=== PATIENT | male | born 1935 | race Caucasian/White ===

== ENCOUNTER 2016-05-11 11:20 | Inpatient (IN) ==
--- NOTE | 2016-05-11 11:32 | Emergency Department Note ---
Disposition Clinical Impression: Congestive heart failure Qualifiers: Congestive heart failure type: unspecified congestive heart failure type Congestive heart failure chronicity: acute Qualified Code(s): I50.9 - Heart failure, unspecified Dyspnea Qualifiers: Dyspnea type: unspecified Qualified Code(s): R06.00 - Dyspnea, unspecified Disposition: Admitted As Inpatient Condition: Fair Referrals: Samanta De Souza MD [Primary Care Provider] - Forms: ED Satisfaction Letter Time of Disposition: 12:31 SOB HPI - General Chief Complaint: ED Shortness of Breath/Dyspnea Stated Complaint: SOB, CHF Time Seen by Provider: 05/11/16 11:22 Source: patient, EMS Mode of arrival: EMS Limitations: no limitations Nursing Notes Reviewed: Yes Vital Signs Reviewed: Yes - History of Present Illness 81-year-old with a cardiomyopathy EF of 30-35% who comes in complaining of increasing shortness of breath. Patient states he is normally not on Lasix but he takes his weight every day and if it starts to go up he treats himself when necessary. States his weight was up 1-2 pounds. 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 Denies: chest pain, fever Treatment prior to arrival: oxygen - Related Data Home Medications Medication Instructions Recorded Confirmed Alprazolam [Xanax 0.5 MG Tablet] 06/11/15 Aspirin [Adult Low Dose Aspirin EC] 06/11/15 Calcium 600 + Vit D Softgel 06/11/15 Carvedilol [Coreg] 06/11/15 HumaLOG 06/11/15 Lantus 06/11/15 Lipitor 06/11/15 Lisinopril [Zestril] 06/11/15 Multivitamin [Multivitamins] 06/11/15 Norvasc 06/11/15 Warfarin [Coumadin] 06/11/15 06/11/15 Previous Rx's Medication Instructions Recorded Azithromycin [Azithromycin 6-Tab 250 mg PO DAILY #6 tab 06/11/15 Pack] GuaiFENesin ER [Mucinex] 1,200 mg PO BID #20 tbbp.12hr 06/11/15 Allergies Allergy/AdvReac Type Severity Reaction Status Date / Time iodine Allergy See Verified 06/11/15 10:14 Comments levofloxacin [From Levaquin] Allergy See Verified 06/11/15 10:14 Comments vancomycin Allergy See Verified 06/11/15 10:14 Comments Constitutional: Denies: fever, chills, weakness, weight change Eyes: Denies: eye pain, eye discharge, vision change ENT ED: Denies: ear pain, throat pain, dental pain, hearing loss, epistaxis, congestion, dysphagia Cardiovascular: Denies: chest pain, palpitations, dyspnea on exertion, edema, syncope Respiratory: Reports: cough, dyspnea. Denies: wheezes, hemoptysis, stridor Gastrointestinal: Denies: abdominal pain, nausea, vomiting, diarrhea, constipation, hematemesis, melena, hematochezia Genitourinary: Denies: urgency, dysuria, frequency, hematuria Musculoskeletal: Denies: back pain, neck pain, arthralgia, myalgia Integumentary: Denies: rash, abrasion, lesions Neurological: Denies: headache, weakness, numbness, paresthesias, confusion, abnormal gait, vertigo Psychiatric: Denies: anxiety, depression, suicidal thoughts, homicidal thoughts , auditory hallucinations, visual hallucinations Endocrine: Denies: fatigue Hematological/Lymphatic: Denies: easy bleeding, easy bruising Allergic/Immunologic: Denies: facial swelling, urticaria Past Medical History - Past Medical History Medical history: Reports: CHF, diabetes, hypertension, other - Social History Smoking Status: Never smoker Smokeless Tobacco Status: No Alcohol use: Reports: occasionally Physical Exam - General Limitations: no limitations General appearance: alert - Head Head exam: atraumatic, normocephalic, normal inspection - Eye Eye exam: Present: normal appearance, PERRL, EOMI - ENT ENT exam: normal exam, normal oropharynx, mucous membranes moist - Neck Neck exam: Present: normal inspection, full ROM, trachea midline - Chest Chest inspection: Present: normal inspection, symmetric chest wall rise - Respiratory Respiratory exam: Present: respiratory distress, wheezes, accessory muscle use - Cardiovascular Cardiovascular exam: Present: regular rate, normal rhythm, normal heart sounds - Abdominal Exam Abdominal exam: Present: soft, Non-Tender. Absent: tenderness, distention, guarding, rebound, rigidity - Extremities Exam Extremities exam: Present: normal inspection, full ROM. Absent: tenderness, pedal edema - Expanded Lower Extremity Exam Neurovascular/Tendon exam: Absent: motor deficit, sensory deficit, tendon deficit Gait: not tested/not observed - Back Exam Back exam: Present: normal inspection, full ROM. Absent: tenderness - Neurological Exam Neurological exam: Present: alert, oriented X3 - Psychiatric Psychiatric exam: Present: normal affect, normal mood - Skin Skin exam: Present: warm, dry, intact, normal color Course - Reevaluation(s) Reevaluation #1: 81-year-old has a history of cardiomyopathy is not normally on Lasix he watches his weight and when it increases he takes Lasix. Noted that he's had some decreased urine output and increasing weight. Workup is consistent with CHF. - Consultations Consultation #1: Discussed with Dr. Robert, admit Time: 14:25 Vital Signs Temperature 98 F 05/11/16 11:21 Pulse Rate 79 05/11/16 11:21 Respiratory Rate 18 05/11/16 11:21 Blood Pressure 177/98 05/11/16 11:21 O2 Sat by Pulse Oximetry 93 L 05/11/16 11:21 Temperature 98 F 05/11/16 11:21 Pulse Rate 70 05/11/16 14:13 Respiratory Rate 18 05/11/16 14:13 Blood Pressure 158/94 05/11/16 14:13 O2 Sat by Pulse Oximetry 94 L 05/11/16 14:13 Oxygen Delivery Oxygen Delivery Nasal Cannula Shortness of Breath/Dyspnea - Lab Data Lab results reviewed: Yes I reviewed the patient's lab results. Result diagrams: 05/11/16 11:56 05/11/16 11:56 Lab Results 05/11/16 05/11/16 05/11/16 Range/Units 11:56 11:56 11:56 WBC 16.1 H (4.3-11.1) K/mcL RBC 5.17 (4.19-5.50) M/mcL Hgb 15.5 (12.9-16.9) g/dL Hct 45.2 (37.5-50.1) % MCV 87.4 (83.0-100.0) fL MCH 30.0 (28.0-33.3) pg MCHC 34.3 (31.6-35.5) g/dL RDW 13.6 (11.5-14.5) % Plt Count 133 L (140-400) K/mcL MPV 10.3 (9.4-12.4) fL Immature Gran % 0.7 (0-4) % Seg Neutrophils % 89.4 % Lymphocytes % 3.9 % Monocytes % 5.8 % Eosinophils % 0.1 % Basophils % 0.1 % Neutrophils # 14.4 H (1.6-8.9) K/mcL Lymphocytes # 0.6 (0.6-4.6) K/mcL Monocytes # 0.9 (0.0-1.3) K/mcL Eosinophils # 0.0 (0.0-0.6) K/mcL Basophils # 0.0 (0.0-0.2) K/mcL PT 42.4 H D (9.4-12.1) Seconds INR 3.8 D APTT 32.8 (26.0-36.0) Seconds Sodium 137 (136-145) mEq/L Potassium 3.6 (3.5-4.5) mEq/L Chloride 93 L (98-109) mEq/L Carbon Dioxide 32 H (19-29) mEq/L BUN 47 H (8-26) mg/dL Creatinine 1.98 H (0.72-1.25) mg/dL Est GFR ( Amer) 40 L (> 60) Est GFR (Non-Af Amer) 33 L (> 60) BUN/Creatinine Ratio 24 (6-26) Glucose 300 H (70-99) mg/dL Calculated Osmolality 307 H (280-300) Calcium 10.7 (8.6-10.8) mg/dL Troponin I (0-0.03) ng/mL B-Natriuretic Peptide (0-100) pg/mL 05/11/16 05/11/16 Range/Units 11:56 11:56 WBC (4.3-11.1) K/mcL RBC (4.19-5.50) M/mcL Hgb (12.9-16.9) g/dL Hct (37.5-50.1) % MCV (83.0-100.0) fL MCH (28.0-33.3) pg MCHC (31.6-35.5) g/dL RDW (11.5-14.5) % Plt Count (140-400) K/mcL MPV (9.4-12.4) fL Immature Gran % (0-4) % Seg Neutrophils % % Lymphocytes % % Monocytes % % Eosinophils % % Basophils % % Neutrophils # (1.6-8.9) K/mcL Lymphocytes # (0.6-4.6) K/mcL Monocytes # (0.0-1.3) K/mcL Eosinophils # (0.0-0.6) K/mcL Basophils # (0.0-0.2) K/mcL PT (9.4-12.1) Seconds INR APTT (26.0-36.0) Seconds Sodium (136-145) mEq/L Potassium (3.5-4.5) mEq/L Chloride (98-109) mEq/L Carbon Dioxide (19-29) mEq/L BUN (8-26) mg/dL Creatinine (0.72-1.25) mg/dL Est GFR ( Amer) (> 60) Est GFR (Non-Af Amer) (> 60) BUN/Creatinine Ratio (6-26) Glucose (70-99) mg/dL Calculated Osmolality (280-300) Calcium (8.6-10.8) mg/dL Troponin I 0.03 (0-0.03) ng/mL B-Natriuretic Peptide 855 H (0-100) pg/mL - Radiology Data Radiology results reviewed: Yes I reviewed the patient's radiology results. Chest X-Ray 05/11/16 11:26 IMPRESSION: Mild right basilar atelectasis. D/ / Antoinette Perla MD / Antoinette Perla MD Interpreting Provider: Antoinette Perla MD - EKG Data EKG attestation: Yes I reviewed and interpreted this EKG. EKG results narrative: Paced rhythm
[2016-05-11] MEDS ORDERED: Ipratropium/Albuterol Neb 3 ML IH ONE (11:54)
[2016-05-11 12:04] LABS: Basophils % 0.1 %; Eosinophils % 0.1 %; Hematocrit 45.2 % (37.5-50.1); Hemoglobin 15.5 g/dL (12.9-16.9); Immature Granulocytes % 0.7 % (0-4); Lymphocytes # 0.6 K/mcL (0.6-4.6); Lymphocytes % 3.9 %; Mean Corpuscular HGB Conc 34.3 g/dL (31.6-35.5); Mean Corpuscular Volume 87.4 fL (83.0-100.0); Mean Platelet Volume 10.3 fL (9.4-12.4); Monocytes # 0.9 K/mcL (0.0-1.3); Monocytes % 5.8 %; Neutrophils # 14.4 K/mcL (1.6-8.9); Platelet Count 133 K/mcL (140-400); Red Blood Count 5.17 M/mcL (4.19-5.50); Red Cell Distribution Width 13.6 % (11.5-14.5); Segmented Neutrophils % 89.4 %
[2016-05-11 12:14] LABS: Activated Partial Thrombo Time 32.8 Seconds (26.0-36.0)
[2016-05-11 12:15] LABS: INR 3.8; Prothrombin Time 42.4 Seconds (9.4-12.1)
[2016-05-11 12:19] LABS: Calcium 10.7 mg/dL (8.6-10.8); Potassium 3.6 mEq/L (3.5-4.5)
[2016-05-11] MEDS ORDERED: Furosemide 40 MG/4 ML VIAL IVP ONE ×2 (12:30→21:00)
[2016-05-11] MEDS ORDERED: Naloxone 0.4 MG/ML INJ IVP PRN (17:13)
[2016-05-11] MEDS ORDERED: ALPRAZolam 0.5 MG TABLET PO PRN (17:18)
[2016-05-11] MEDS ORDERED: amLODIPine 5 MG TABLET PO SCH (17:30)
[2016-05-11] MEDS ORDERED: *HR* Warfarin 2.5 MG TABLET PO SCH (17:30)
[2016-05-11] MEDS: Albuterol 2.5 MG/3 ML NEBULIZER IH SCH ×2 (17:34→22:54)
[2016-05-11] MEDS ORDERED: Warfarin perPT PO PRN (18:00)
[2016-05-11] MEDS ORDERED: Dextrose Gel 15 GM PO PRN ×4 (18:03→22:23)
[2016-05-11] MEDS ORDERED: D5% in Water 1,000 ML IV PRN ×2 (18:03→22:23)
[2016-05-11] MEDS ORDERED: *HR* Dextrose 50 % in Water (Syg) 50 ML SYRINGE IVP PRN ×2 (18:03→22:23)
--- NOTE | 2016-05-11 18:25 | Internal Med History&Physical ---
Date of Encounter: 05/12/16 Time of Encounter: 16:30 Assessment and Plan (1) Respiratory failure with hypoxia Current visit: Yes Status: Acute 1 possibly multifactorial- patient experiencing sudden onset of shortness of breath with wheezes. History of ischemic cardiomyopathy EF of 3035%. On Lasix at home no weight gain no edema no JVD chest x-ray with no congestion BNP is 855, he does have some abdominal distention/aspiration. This could be related to heart failure however he does have leukocytosis with white count 16.1 he is afebrile his hypoxic with Spo2 93%. This could be viral or infectious process- we will obtain blood cultures respiratory panel flu swab 2 we will administer Lasix 40 mg IV. We will recheck creatinine in the a.m. and readjust Lasix as needed according to renal function 3 administer steroids IV taper-bronchodilators 4 oxygen to maintain SPO2 greater than 92% 5. Obtain a KUB for a possible ileus Qualifiers: Chronicity: acute Qualified Code(s): J96.01 - Acute respiratory failure with hypoxia (2) Leukocytosis Current visit: Yes Status: Acute 1 A she has elevated white count 16.1 afebrile uncertain source of infection. Suspect this might be respiratory viral versus bacterial-we will obtain blood cultures respiratory pain all influenza swabs Qualifiers: Leukocytosis type: unspecified Qualified Code(s): D72.829 - Elevated white blood cell count, unspecified (3) Hypertension Current visit: Yes Status: Acute 1 we will continue with home medications except we will hold lisinopril due to elevated creatinine Qualifiers: Hypertension type: essential hypertension Qualified Code(s): I10 - Essential (primary) hypertension (4) Diabetes Current visit: Yes Status: Acute 1 Accu-Cheks before meals at bedtime with basal and sliding scale insulin as needed maintain postprandial less than 180 Qualifiers: Diabetes mellitus type: type 2 Diabetes mellitus complication status: with kidney complications Diabetes mellitus complication detail: with chronic kidney disease Diabetes mellitus chcf insulin use: with joint terminal attack controller use Chronic kidney disease stage: stage 3 (moderate) Qualified Code(s): E11.22 - Type 2 diabetes mellitus with diabetic chronic kidney disease; N18.3 - Chronic kidney disease, stage 3 (moderate); Z79.4 - intermediate (current) use of insulin (5) CAD (coronary artery disease) Current visit: Yes Status: Acute 1 A she has history of CAD with stents will continue with aspirin and statin beta tyrone will hold Vaibhav for now due to elevated creatinine nitroglycerin as needed for chest pain Qualifiers: Coronary Disease-Associated Artery/Lesion type: [place] artery [place] vs. transplanted heart: [place] heart Associated angina: without angina Qualified Code(s): I25.10 - Atherosclerotic heart disease of [place] coronary artery without angina pectoris (6) History of ischemic cardiomyopathy Current visit: Yes Status: Acute 1 last cardiac echo was proximal and one year ago EF at that time was 3035%. We will obtain cardiac echo 2 we will continue with Lasix, beta tyrone 3 monitor intake and output and daily weights 4 cardiac diet (7) Paroxysmal atrial fibrillation Current visit: Yes Status: Acute 1 presently a paced rhythm will continue with beta tyrone as well as Coumadin. We will monitor INR and adjust Coumadin as needed. (8) Ccomx-fy-fzdnybv renal failure Current visit: Yes Status: Acute 1 patient has CKD stage III. Creatinine is 1.98 which is elevated s seems baseline 1.4 1.5. Suspect related to cardiomyopathy/heart failure. Will continue with Lasix administered 40 mg IV post will recheck creatinine in the a.m. if any increase stop Lasix 2 we will avoid nephrotoxins 3 renal diet 4 monitor intake and output and daily weight 5 consult nephrology as needed (9) DVT prophylaxis Current visit: Yes Status: Acute Patient is on Coumadin Internal Medicine - H&P: HPI Chief complaint: Shortness of breath. Admitted From: Emergency Dept Plans for Post Hospital Care: Home History of present illness: Mr. Wei is a 81 year old male with past history of coronary artery disease ischemic cardiomyopathy history of V. tach with ICD placement paroxysmal atrial fibrillation on Coumadin C VISHNU stage III hypertension type 2 diabetes. According to the patient had been in his usual state of health and actually went to his primary care doctor yesterday and was doing well, however by the evening he states he started to experience some shortness of breath and noticed some rattling in his breathing. He took an extra Lasix prior to going to bed. States he did not sleep very well overnight and this morning when he awoke continued to experience shortness of breath, rattling respirations with a nonproductive cough. He notes that he did not urinate as much as he normally does after taking Lasix. He denies any chest pain, palpitations swelling or weight gain fevers chills nausea vomiting or diarrhea. He presented to the ER for evaluation. According to ER notes upon presentation the patient's oxygen saturation was 93% on room air lab work revealed leukocytosis white count 16.1 acute kidney injury with creatinine 1.98. Elevated blood sugars 300. Chest x- ray showed mild right basilar atelectasis troponin was 0.03 BNP was 855. He was admitted for further workup and evaluation. Upon assessment patient appears to be in mild respiratory distress he does have a moist cough and moist rattling respirations. Lungs sounds with faint expiratory wheeze no edema noted he does have Distended abdomen that is firm nontender his last bowel movement was this morning He is alert appropriate follow simple commands. He is 94% on 2 L, he is hemodynamically stable this time. I reviewed this case with who agrees with plan Past Med Surg Social Fam HX - Past Medical History Medical history: CHF, diabetes, hypertension, other - Social History Smoking Status: Never smoker Smokeless Tobacco Status: No Alcohol use: occasionally Drug use: none - Family History Mother Living Status: Hx Family Cardiac Disorders: Yes (CHF) Internal Medicine - H&P: Meds Acetaminophen [Tylenol] 500 - 1,000 mg PO Q6H PRN 05/11/16 [History] Alprazolam [Xanax 0.5 MG Tablet] 0.5 mg PO TID PRN 05/11/16 [History] Amlodipine [Norvasc] 5 mg PO DAILY 05/11/16 [History] Aspirin [Lo-Dose Aspirin EC] 81 mg PO DAILY 05/11/16 [History] Atorvastatin Calcium [Lipitor] 60 mg PO QPM 05/11/16 [History] Calcium Carbonate/Vitamin D3 [Calcium 600 + Vit D Softgel] 1 cap PO BID [History] Carvedilol [Coreg] 25 mg PO BID 05/11/16 [History] Folic Acid/Multivit-Min/Lutein [Adult Multivitamin Gummies] 2 tab PO DAILY 05/11 [History] Furosemide [Lasix] 40 mg PO DAILY 05/11/16 [History] Insulin Glargine,Hum.rec.anlog [Lantus Solostar] 12 unit SQ BID 05/11/16 [ History] Insulin LISPRO [Humalog] 3 - 8 unit SQ TIDWM 05/11/16 [History] Lisinopril [Zestril] 20 mg PO BID 05/11/16 [History] Pantoprazole Sodium [Protonix] 40 mg PO DAILY 05/11/16 [History] Warfarin [Coumadin] 2.5 mg PO MOWEFRSA 05/11/16 [History] Warfarin [Coumadin] 5 mg PO SUTUTH 05/11/16 [History] Allergies iodine Allergy (Verified 06/11/15 10:14) See Comments levofloxacin [From Levaquin] Allergy (Verified 06/11/15 10:14) See Comments vancomycin Allergy (Verified 06/11/15 10:14) See Comments All Systems PM: A 10-system review of systems was performed and is negative for pertinent findings except as documented above in the HPI. - Constitutional Constitutional: weakness - Cardiovascular Cardiovascular ROS IM: no chest pain, no diaphoresis, no dyspnea, no lightheadedness, no palpitations, no syncope - Respiratory Respiratory: cough, dyspnea on exertion, wheezing - Gastrointestinal Gastrointestinal: bloating - Musculoskeletal Musculoskeletal ROS IM: no numbness, no tingling - Neurological Neurological ROS: no confusion, no convulsions, no focal weakness, no numbness, no tingling, no tremor(s) - Constitutional Vitals: Temp Pulse Resp BP Pulse Ox 97.7 F 70 18 155/86 94 L 05/11/16 15:50 05/11/16 15:50 05/11/16 17:34 05/11/16 15:50 05/11/16 17:34 General appearance: Present: A&O X 3, answers questions appropriately - Head Head exam: Present: atraumatic, normocephalic - Eye Eye exam: Present: PERRL, conjuntiva pink, sclera anicteric Pupils: Present: PERRL - Neck Neck exam general surgery: Present: supple, trachea midline. Absent: lymphadenopathy - Respiratory Respiratory exam: Present: wheezes. Absent: accessory muscle use, rales, rhonchi - Cardiovascular Cardiovascular exam: Present: RRR, +S1, +S2. Absent: diastolic murmur, gallop, rubs, systolic murmur - GI/Abdominal GI/Abdominal exam: Present: distended, firm, hypoactive bowel sounds, normal bowel sounds, no peritoneal signs. Absent: tenderness - Extremities Exam Extremities exam: Present: warm, radial pulses palpable and symetrical. Absent : calf tenderness, cyanotic, pedal edema - Neurological Exam Neurological exam: Present: CN II-XII intact, oriented X3, no focal deficits. Absent: pronater drift, facial droop, speech deficit - Skin Skin exam: Present: dry, intact Internal Med - H&P Results - Labs CBC & Chem 7: 05/11/16 11:56 05/11/16 11:56 - EKG Data EKG comments: 05/12/16 00:33 Paced rhythm - Impressions ITS Impressions KUB X-Ray 05/11/16 17:12 IMPRESSION: Nonspecific bowel gas pattern, similar to prior exam. D/ / Bakari Youngblood MD / Bakari Youngblood MD Interpreting Provider: Bakari Youngblood MD - Diagnostic Studies Chest x-ray Additional comments: Per radiology reading mild right basilar atelectasis
[2016-05-11] MEDS ORDERED: Insulin LISPRO 300 UNITS/3 ML VIAL SQ ONE (18:28)
[2016-05-11] MEDS ORDERED: Insulin LISPRO 300 UNITS/3 ML VIAL SQ SCH (21:00)
[2016-05-11] MEDS ORDERED: Insulin DETEMIR 100 UNIT/ML X5UNITS SQ SCH (21:00)
[2016-05-11] MEDS: VITAMIN D3 PO SCH (21:27)
[2016-05-11] MEDS: CALCIUM CARBONATE PO SCH (21:27)
[2016-05-11 21:30] LABS: ABG Base Excess 5.5 mEq/L (-2.0 to 3.0); ABG HCO3 37.2 mEQ/L (21-27); ABG Oxygen Saturation 95 % (95-98); ABG PH 7.22 pH Units (7.32-7.45); ABG PO2 91 mmHg (85-104)
[2016-05-11 21:32] LABS: ABG PCO2 91 mmHg (35-45); Blood Gas FiO2 36 %; Blood Gas Liter Flow 4 L/MIN
[2016-05-11] MEDS ORDERED: *HR* Etomidate 40 MG/20 ML VIAL IVP ONE (21:57)
[2016-05-11] MEDS ORDERED: *HR* Midazolam HCl 2 MG/2 ML VIAL IVP ONE (21:58)
[2016-05-11] MEDS ORDERED: 0.9 % Sodium Chloride 500 ML IVC ONE (22:34)
[2016-05-11 22:46] LABS: Adenovirus Not Detected (Not Detect); Coronavirus 229E Not Detected (Not Detect); Coronavirus HKU1 Not Detected (Not Detect); Coronavirus NL63 Not Detected (Not Detect); Coronavirus OC43 Not Detected (Not Detect); Human Metapneumovirus Not Detected (Not Detect); Human Rhinovirus/Enterovirus Not Detected (Not Detect)
[2016-05-11 22:47] LABS: Bordetella Pertussis Not Detected (Not Detect); Chlamydophila pneumoniae Not Detected (Not Detect); Influenza A Subtype 2009 H1 Not Detected (Not Detect); Influenza A Untypeable Not Detected (Not Detect); Influenza B Not Detected (Not Detect); Mycoplasma pneumoniae Not Detected (Not Detect); Parainfluenza Virus 1 Not Detected (Not Detect); Parainfluenza Virus 2 Not Detected (Not Detect); Parainfluenza Virus 3 Not Detected (Not Detect); Parainfluenza Virus 4 Not Detected (Not Detect); Respiratory Syncytial Virus Not Detected (Not Detect)
[2016-05-11 22:59] LABS: ABG Base Excess 7.7 mEq/L (-2.0 to 3.0); ABG HCO3 35.3 mEQ/L (21-27); ABG Oxygen Saturation 100 % (95-98); ABG PCO2 61 mmHg (35-45); ABG PH 7.37 pH Units (7.32-7.45); ABG PO2 453 mmHg (85-104); ABG TCO2 37.2 mEq/L (20-26); Blood Gas FiO2 100 %
[2016-05-11] MEDS: MethylPREDNISolone 40 MG/ML VIAL IVP SCH (23:48)
[2016-05-11] MEDS: Azithromycin 500 MG in D5% in Water 250 ML IVPB SCH (23:48)
[2016-05-11] MEDS: Piperacillin/Tazobactam 3.375 GM in D5% in Water (Mini-Bag+) 100 ML IVPB SCH (23:49)
[2016-05-12] MEDS: Pantoprazole 40 MG VIAL IVP SCH ×2 (00:40→07:37)
--- NOTE | 2016-05-12 01:03 | Event Note ---
Date of Encounter: 05/12/16 Time of Encounter: 21:30 Patient began to experience increased respiratory distress. He had audible coarse rhonchi to With use of abdominal accessory muscles. He appeared lethargic and arouses to verbal stimuli. SPO2 was 94% on 4 L nasal cannula. Notify Dr Ch who was at bedside . Patient was sections progressed with therapy moderate amount of brown foul-smelling secretions. ABG was obtained PA 7.22 PCO2 91 PO2 91 bicarbonate 37 sats 95% on 4 L nasal cannula. Patient is unable to cough and clear airway unsafe to place patient on BiPAP. Decision was made to intubate patient to protect airway improve oxygenation.. I did speak with patient's Matilde Wei by telephone update her on patient's condition explained the need for intubation which she gave consent to intubate patient. Patient was transported to ICU and was sedated and intubated.
--- NOTE | 2016-05-12 01:12 | Critical Care Progress Note ---
Critical Care Note - Narrative Summary: The high probability of a clinically significant, sudden or life threatening deterioration of the patient's condition required my full and direct attention, intervention and personal management. Patient began to experience increased respiratory distress. He had audible coarse rhonchi and increase use of abdominal accessory muscles. He appeared lethargic and arouses to verbal stimuli. SPO2 was 94% on 4 L nasal cannula. Notify Dr Ch who was at bedside . Patient was sections progressed with therapy moderate amount of brown foul-smelling secretions. ABG was obtained PA 7.22 PCO2 91 PO2 91 bicarbonate 37 sats 95% on 4 L nasal cannula. Patient is unable to cough and clear airway unsafe to place patient on BiPAP. Decision was made to intubate patient to protect airway improve oxygenation.. I did speak with patient's Matilde Wei by telephone update her on patient's condition explained the need for intubation which she gave consent to intubate patient. Patient was transported to ICU and was sedated and intubated. Patient tolerated the procedure he did have some hypotension postintubation we did give him a small fluid challenge. This critical care time spent with the patient was 40 minutes A/P Acute respiratory failure-suspect this is related to infectious process/ aspiration-cultures have been sent will send sputum culture will initiate empiric antibiotic coverage with Zosyn and Zithromax. We will obtain CT of chest obtain ABG 1 hour post intubation adjustment settings accordingly. propofol for sedation We will consult boot turner for further management Abdominal distention-place NG low wall suction Was code activated?: No - CC Time CC start date: 05/11/16 CC start time: 21:30 CC end date: 05/11/16 CC end time: 22:10 CC total mins: 40 Critical care time: 30 - 74 mins
[2016-05-12] MEDS: Insulin LISPRO 300 UNITS/3 ML VIAL SQ SCH ×4 (01:57→17:18)
[2016-05-12] MEDS: Albuterol 2.5 MG/3 ML NEBULIZER IH SCH ×4 (03:34→21:21)
[2016-05-12 04:43] LABS: ABG Base Excess 2.5 mEq/L (-2.0 to 3.0); ABG HCO3 28.4 mEQ/L (21-27); ABG Oxygen Saturation 96 % (95-98); ABG PCO2 48 mmHg (35-45); ABG PH 7.38 pH Units (7.32-7.45); ABG PO2 82 mmHg (85-104); ABG TCO2 29.9 mEq/L (20-26); Blood Gas FiO2 40 %
[2016-05-12 04:57] LABS: Hematocrit 40.9 % (37.5-50.1); Mean Corpuscular HGB Conc 32.8 g/dL (31.6-35.5); Mean Corpuscular Hemoglobin 29.9 pg (28.0-33.3); Mean Corpuscular Volume 91.3 fL (83.0-100.0); Mean Platelet Volume 10.7 fL (9.4-12.4); Platelet Count 105 K/mcL (140-400); Red Blood Count 4.48 M/mcL (4.19-5.50); Red Cell Distribution Width 14.3 % (11.5-14.5)
[2016-05-12 05:07] LABS: INR 7.3; Prothrombin Time 83.6 Seconds (9.4-12.1)
[2016-05-12 05:08] LABS: Hemoglobin 13.4 g/dL (12.9-16.9)
[2016-05-12 05:18] LABS: Calcium 9.7 mg/dL (8.6-10.8); Magnesium 1.9 mg/dL (1.6-2.6); Potassium 3.7 mEq/L (3.5-4.5)
[2016-05-12 05:29] LABS: Lymphocytes # 0.7 K/mcL (0.6-4.6); Monocytes # 0.4 K/mcL (0.0-1.3); Neutrophils # 9.8 K/mcL (1.6-8.9); Platelet Estimate Slight Decrease (Normal)
[2016-05-12 05:30] LABS: Reactive Lymphocytes Present (Not Present); Toxic Granulation Present (Not Present)
[2016-05-12] MEDS ORDERED: MethylPREDNISolone 40 MG/ML VIAL IVP SCH (06:00)
[2016-05-12 06:31] LABS: INR 7.9; Prothrombin Time 90.4 Seconds (9.4-12.1)
[2016-05-12] MEDS ORDERED: Insulin LISPRO 300 UNITS/3 ML VIAL SQ SCH (07:30)
[2016-05-12] MEDS: Piperacillin/Tazobactam 3.375 GM in D5% in Water (Mini-Bag+) 100 ML IVPB SCH ×2 (07:37→15:00)
[2016-05-12] MEDS: MethylPREDNISolone 40 MG/ML VIAL IVP SCH (07:40)
[2016-05-12] MEDS: Aspirin Enteric Coated 81 MG Tablet PO SCH (07:40)
[2016-05-12] MEDS: CALCIUM CARBONATE PO SCH ×2 (07:41→20:22)
[2016-05-12] MEDS: VITAMIN D3 PO SCH ×2 (07:41→20:22)
--- NOTE | 2016-05-12 07:51 | Pulmonology Consult Note ---
<JohnAbebe W - Last Filed: 05/12/16 10:12> Date of Encounter: 05/12/16 Medications and Allergies Acetaminophen [Tylenol] 500 - 1,000 mg PO Q6H PRN 05/11/16 [History] Alprazolam [Xanax 0.5 MG Tablet] 0.5 mg PO TID PRN 05/11/16 [History] Amlodipine [Norvasc] 5 mg PO DAILY 05/11/16 [History] Aspirin [Lo-Dose Aspirin EC] 81 mg PO DAILY 05/11/16 [History] Atorvastatin Calcium [Lipitor] 60 mg PO QPM 05/11/16 [History] Calcium Carbonate/Vitamin D3 [Calcium 600 + Vit D Softgel] 1 cap PO BID [History] Carvedilol [Coreg] 25 mg PO BID 05/11/16 [History] Folic Acid/Multivit-Min/Lutein [Adult Multivitamin Gummies] 2 tab PO DAILY 05/11 [History] Furosemide [Lasix] 40 mg PO DAILY 05/11/16 [History] Insulin Glargine,Hum.rec.anlog [Lantus Solostar] 12 unit SQ BID 05/11/16 [ History] Insulin LISPRO [Humalog] 3 - 8 unit SQ TIDWM 05/11/16 [History] Lisinopril [Zestril] 20 mg PO BID 05/11/16 [History] Pantoprazole Sodium [Protonix] 40 mg PO DAILY 05/11/16 [History] Warfarin [Coumadin] 2.5 mg PO [id number] 05/11/16 [History] Warfarin [Coumadin] 5 mg PO SUTUTH 05/11/16 [History] Allergies iodine Allergy (Verified 06/11/15 10:14) See Comments levofloxacin [From Levaquin] Allergy (Verified 06/11/15 10:14) See Comments vancomycin Allergy (Verified 06/11/15 10:14) See Comments All Systems: A 10-system review of systems was performed and is negative for pertinent findings except as documented above in the HPI. Physical Examination Vital Signs: Vital Signs, Last 4 Hours Temp Pulse Resp BP Pulse Ox 05/12/16 09:00 70 24 101/59 96 05/12/16 08:00 70 22 94/57 94 L 05/12/16 07:56 70 05/12/16 07:32 97.5 F L 05/12/16 07:00 70 23 113/62 93 L 05/12/16 06:15 16 114/69 96 05/12/16 06:00 70 22 114/69 98 Ventilator Settings Ventilator Settings: Ventilator Settings, Last 8 Hours Ventilator Mode A/C Ventilator Mode A/C Ventilator Mode A/C Ventilator Mode A/C Ventilator Mode A/C Ventilator Mode A/C Ventilator Mode A/C Ventilator Mode A/C Ventilator Mode A/C Ventilator Mode A/C Ventilator Mode A/C Ventilator Mode A/C Ventilator Tidal Volume 500 Setting Ventilator Tidal Volume 500 Setting Ventilator Tidal Volume 550 Setting Ventilator Tidal Volume 550 Setting Ventilator Tidal Volume 550 Setting Ventilator Tidal Volume 550 Setting Ventilator Tidal Volume 550 Setting Ventilator Tidal Volume 550 Setting Ventilator Tidal Volume 550 Setting Ventilator Tidal Volume 550 Setting Ventilator Tidal Volume 550 Setting Ventilator Tidal Volume 550 Setting Ventilator Respiratory Rate 16 Setting Ventilator Respiratory Rate 16 Setting Ventilator Respiratory Rate 16 Setting Ventilator Respiratory Rate 16 Setting Ventilator Respiratory Rate 16 Setting Ventilator Respiratory Rate 16 Setting Ventilator Respiratory Rate 16 Setting Ventilator Respiratory Rate 16 Setting Ventilator Respiratory Rate 16 Setting Ventilator Respiratory Rate 16 Setting Ventilator Respiratory Rate 16 Setting Ventilator Respiratory Rate 16 Setting Actual Respiratory Rate 24 Actual Respiratory Rate 22 Actual Respiratory Rate 23 Actual Respiratory Rate 16 Actual Respiratory Rate 23 Actual Respiratory Rate 22 Actual Respiratory Rate 22 Actual Respiratory Rate 16 Actual Respiratory Rate 16 Actual Respiratory Rate 18 Actual Respiratory Rate 18 Positive End Expiratory 5 Pressure Positive End Expiratory 5 Pressure Positive End Expiratory 5 Pressure Positive End Expiratory 5 Pressure Positive End Expiratory 5 Pressure Positive End Expiratory 5 Pressure Positive End Expiratory 5 Pressure Positive End Expiratory 5 Pressure Positive End Expiratory 5 Pressure Positive End Expiratory 5 Pressure Positive End Expiratory 5 Pressure Positive End Expiratory 5 Pressure Peak Inspiratory Airway 33 Pressure Peak Inspiratory Airway 33 Pressure Peak Inspiratory Airway 33 Pressure Peak Inspiratory Airway 33 Pressure Peak Inspiratory Airway 29 Pressure Peak Inspiratory Airway 29 Pressure Peak Inspiratory Airway 29 Pressure Peak Inspiratory Airway 28 Pressure Peak Inspiratory Airway 28 Pressure Peak Inspiratory Airway 29 Pressure Peak Inspiratory Airway 28 Pressure Results - Laboratory Findings CBC and BMP: 05/12/16 04:21 05/12/16 04:21 ABG ABG pH 7.38 pH Units (7.32-7.45) 05/12/16 04:35 ABG pCO2 48 mmHg (35-45) H 05/12/16 04:35 ABG pO2 82 mmHg (85-104) L 05/12/16 04:35 ABG O2 Saturation 96 % (95-98) 05/12/16 04:35 PT/INR, D-dimer PT 90.4 Seconds (9.4-12.1) H* 05/12/16 06:00 Abnormal lab findings: Abnormal lab results Plt Count 105 K/mcL (140-400) L 05/12/16 04:21 Band Neutrophils % 12.0 % (0-4) H 05/12/16 04:21 Metamyelocytes % 2.0 % (0) H 05/12/16 04:21 Neutrophils # 9.8 K/mcL (1.6-8.9) H 05/12/16 04:21 Reactive Lymphocytes Present (Not Present) A 05/12/16 04:21 Toxic Granulation Present (Not Present) A 05/12/16 04:21 Platelet Estimate Slight Decrease (Normal) L 05/12/16 04:21 PT 90.4 Seconds (9.4-12.1) H* 05/12/16 06:00 INR 7.9 H* 05/12/16 06:00 ABG pCO2 48 mmHg (35-45) H 05/12/16 04:35 ABG pO2 82 mmHg (85-104) L 05/12/16 04:35 ABG HCO3 28.4 mEQ/L (21-27) H 05/12/16 04:35 ABG Total CO2 29.9 mEq/L (20-26) H 05/12/16 04:35 Sodium 135 mEq/L (136-145) L 05/12/16 04:21 Chloride 97 mEq/L (98-109) L 05/12/16 04:21 BUN 63 mg/dL (8-26) H D 05/12/16 04:21 Creatinine 2.55 mg/dL (0.72-1.25) H 05/12/16 04:21 Est GFR ( Amer) 30 (> 60) L 05/12/16 04:21 Est GFR (Non-Af Amer) 24 (> 60) L 05/12/16 04:21 Glucose 226 mg/dL (70-99) H 05/12/16 04:21 POC Glucose 208 (58-89) H 05/12/16 01:56 Calculated Osmolality 305 (280-300) H 05/12/16 04:21 Lactic Acid 2.4 mmol/L (0.5-2.2) H 05/11/16 18:47 C-Reactive Protein 33 mg/L (Less than 5) H 05/11/16 18:47 B-Natriuretic Peptide 855 pg/mL (0-100) H 05/11/16 11:56 - Clinical Findings Intake & Output: Intake & Output 05/11/16 05/12/16 05/12/16 23:59 07:59 15:59 Intake Total 549 / 549 Output Total 1250 / 1250 Balance -701 / -701 Weight 83.3 kg Consult Discharge Plan - Plan Referrals: Samanta De Souza MD [Primary Care Provider] - - Attending Attestation I examined this patient and my medical decision-making was reviewed with the WAIST PLEATER/PA/Advanced Practice Nurse/Resident Physician. I agree with the documented findings, disposition and treatment plan as described except to the extent set forth below. I spent 35min of Critical Care time with this patient. It involved decision making of high complexity to assess, manipulate, and support vital organ system failure and/or to prevent further life threatening deterioration of the patient' s condition. The time involved in the performance of separately reportable procedures was not counted toward critical care time. Patient seen and examined at bedside Labs, radiology, chart personally reviewed. All lines examined without evidence of infection. Neuropsych: Sedated on vent. Comfortable moves all exts to command. PERRL. Cont propofol and fentanyl Pulm: Acute hypoxic respiratory failure s/t to Pneumonia with concern for aspiration. CT scan concerning for PNA aspiration vs atypical. Vented acceptable O2 and ventilation. cont LTV ventilatory strategy. course likely complicated by pulmonary edema. Cont ABx Cards: ECG without STEMI. trop wnl. Acute on Chronic Systolic HF. diurse as tolerated by renal function. BP stable. Lactate modestly elevated now corrected. ECHO pending. Afib rate controlled on LTA. FEN-GI: Concern for illeus with aspiration. CT abd pending. cont NG to LIS. Bowel regimen after excluding obstruction. cont PPI prophylaxis . Renal: EREN on CKD ?overiduresis vs sepsis felt less likely vascular congestion ID: Severe Sepsis s/t aspiration PNA on Zosyn/Azithro. Viral panel negative. Blood/Sputum Cultures Heme/Onc: coagulopathy related to warfarin no evidence of active bleed. IuPRBCs given and 1 dose Vit K. Recheck INR and H/H in 6 hours. Endo: glucose monitored Integ/MSK: skin care per ICU protocol CODE:Full code updated. <Franklin Middleton - Last Filed: 05/12/16 12:25> Date of Encounter: 05/12/16 Time of Encounter: 07:51 Assessment and Plan (1) Respiratory failure with hypoxia Current Visit: Yes Status: Acute Patient was admitted for worsening shortness of breath x1 day prior to admission. Around 01:00am this morning, patient had increased respiratory distress and decision made to intubate as patient was unable to protect airway. Vent settings: Tv 500, rate 16, FiO2 40%, PEEP 5. Viral and respiratory panels negative. Acute Respiratory failure likely secondary aspiration pneumonia vs atypical. Awaiting blood cultures and sputum cultures Continue with ventilator support Continue with Azithromycin and Zosyn. Qualifiers: Chronicity: acute Qualified Code(s): J96.01 - Acute respiratory failure with hypoxia (2) Leukocytosis Current Visit: Yes Status: Acute WBC at 11.1 this morning. Critical Care note last night reported brown foul-smelling secretions. Continuous NG output of brown foul-smelling secretions. With history obtained from regarding severe abdominal pains over the past couple weeks and review of records revealing an essentially normal acute abdominal series on 05/10/16, a thought for possible gi pathology may possibly explain some leukocytosis. Patient has never had a colonoscopy. Blood cultures and sputum cultures pending. Viral and respiratory panel negative. Possibly secondary to aspiration pneumonia vs atypical vs possible gi pathology. CT abdomen/pelvis ordered to rule out obstruction Continue with NG tube with suction. Continue monitoring labs. Continue with antibiotics. Qualifiers: Leukocytosis type: unspecified Qualified Code(s): D72.829 - Elevated white blood cell count, unspecified (3) Elevated INR Current Visit: Yes Status: Acute Patient with a history of paroxysmal afib on chronic coumadin therapy. INR on admission was 3.8. INR this morning was 7.3 and 7.9 Coagulopathy likely due to warfarin, no active bleed. Vitamin K was given 1 Unit FFP transfused. Will continue to monitor Coag panel and H/H. (4) Congestive heart failure Current Visit: Yes Status: Acute Last Echo completed 04/08/15 revealed LVEF 35%. Review of CXR and CT imaging is in favor of other pathology causing initial complaint of shortness of breath, not an acute exacerbation of CHF. EKG revealed atrial fibrillation. BNP 855. Qualifiers: Congestive heart failure type: unspecified congestive heart failure type Congestive heart failure chronicity: acute Qualified Code(s): I50.9 - Heart failure, unspecified (5) CKD (chronic kidney disease), stage III Current Visit: Yes Status: Acute Cr 2.55 this morning, elevated from prior. Possibly secondary to sepsis. Continue to monitor. (6) Paroxysmal atrial fibrillation Current Visit: Yes Status: Acute Hold coumadin Continue monitoring Coag panel. (7) DVT prophylaxis Current Visit: Yes Status: Acute IPCD for dvt ppx History of Present Illness Consult date: 05/12/16 Requesting physician: Cookie Alexander Reason for consult: other (Acute Respiratory Failure) Chief complaint: Acute Respiratory Failure History of present illness: Mr. Wei is an 81 year old male with history of CAD, CHF with EF of 35% and AICD placement, afib on coumadin, CKD stage III, hypertension, and diabetes who presented with increasing shortness of breath since the evening prior. He reports he also noted about a 1-2 Lb weight increase at that time prompting him to take lasix. He did not sleep well and awoke with shortness of breathing and nonproductive cough. He denied fevers, chills, nausea, vomiting, diarrhea, chest pain, palpitations, or edema. In the ER the patient was determined to be 93% on room air and labs revealed wbc 16.1. CXR showed mild right basilar atelectasis and BNP was 855. Upon hospitalist assessment the patient appeared to be in mild respiratory distress with wet cough and firm nontender distended abdomen. He was satting at 94% on 2L nasal cannula at that time. Around 01: 00am the patient began having increase respiratory distress, audible coarse rhonchi, and abdominal accessory muscle used. He was also noted to be lethargic. He was 94% on 4L nasal cannula. ABG revealed pH 7.22, pCO2 91, pO2 91, and sat 95%. Due to patient's inability to cough and clear his airway after noting brown foul-smelling secretions from mouth, decision was made to intubate. Due to Acute respiratory failure sputum cultures, blood cultures, Zosyn, and Azithromycin were ordered. No antibiotics were on board prior to the critical care event. Patient is currently sedated on ventilator support and minimally arousable with no spontaneous eye opening and some extremity movement when prompted. Discussion with family also noted that the patient has had episodes of severe abdominal pain over the past couple weeks. Patient went to PCP where workup included acute abdominal series that revealed some gastric distension. The patient was further treated for constipation. Past Med Surg Social Fam HX - Past Medical History Medical history: atrial fibrillation (coumadin), CHF (last echo 04/08/15, EF 35% ), diabetes, hypertension, renal disease (CKD stage 3), other - Past Surgical History Surgical History: pacemaker/AICD - Social History Smoking Status: Never smoker Smokeless Tobacco Status: No Alcohol use: occasionally Drug use: none Current living situation: Home - Independent, With Family Activity Level: Independent ambulation Recent Out of Country Travel Within the Last 8 Weeks: No Exposure or Possible Exposure to Illness During Travel: No - Family History Mother Living Status: Hx Family Cardiac Disorders: Yes (CHF) ROS unobtainable: due to endotracheal tube All Systems: A 10-system review of systems was performed and is negative for pertinent findings except as documented above in the HPI. Physical Examination Vital Signs: Vital Signs, Last 4 Hours Temp Pulse Resp BP Pulse Ox 05/12/16 07:32 97.5 F L 05/12/16 07:00 70 23 113/62 93 L 05/12/16 06:15 16 114/69 96 05/12/16 06:00 70 22 114/69 98 05/12/16 05:00 97.8 F 70 23 115/63 98 05/12/16 04:00 70 20 97/64 95 General appearance: no acute distress, other (sedated on ventilator, no spontaneous eye opening, moves extremities when prompted) Eyes: nonicteric Neck: supple, no lymphadenopathy, no JVD Effort: normal Inspection: normal Auscultation: bilateral: rales, rhonchi Cardiovascular: irregular rhythm, other (distant heart sounds) Gastrointestinal: hypoactive bowel sounds, soft, non-distended Integumentary: normal Extremities: no cyanosis, no edema, pink and warm, pulses normal Musculoskeletal: no deformities non-focal exam, pupils equal and round Ventilator Settings Ventilator Settings: Ventilator Settings, Last 8 Hours Ventilator Mode A/C Ventilator Mode A/C Ventilator Mode A/C Ventilator Mode A/C Ventilator Mode A/C Ventilator Mode A/C Ventilator Mode A/C Ventilator Mode A/C Ventilator Mode A/C Ventilator Mode A/C Ventilator Tidal Volume 550 Setting Ventilator Tidal Volume 550 Setting Ventilator Tidal Volume 550 Setting Ventilator Tidal Volume 550 Setting Ventilator Tidal Volume 550 Setting Ventilator Tidal Volume 550 Setting Ventilator Tidal Volume 550 Setting Ventilator Tidal Volume 550 Setting Ventilator Tidal Volume 550 Setting Ventilator Tidal Volume 550 Setting Ventilator Respiratory Rate 16 Setting Ventilator Respiratory Rate 16 Setting Ventilator Respiratory Rate 16 Setting Ventilator Respiratory Rate 16 Setting Ventilator Respiratory Rate 16 Setting Ventilator Respiratory Rate 16 Setting Ventilator Respiratory Rate 16 Setting Ventilator Respiratory Rate 16 Setting Ventilator Respiratory Rate 16 Setting Ventilator Respiratory Rate 16 Setting Actual Respiratory Rate 23 Actual Respiratory Rate 16 Actual Respiratory Rate 23 Actual Respiratory Rate 22 Actual Respiratory Rate 22 Actual Respiratory Rate 16 Actual Respiratory Rate 16 Actual Respiratory Rate 18 Actual Respiratory Rate 18 Positive End Expiratory 5 Pressure Positive End Expiratory 5 Pressure Positive End Expiratory 5 Pressure Positive End Expiratory 5 Pressure Positive End Expiratory 5 Pressure Positive End Expiratory 5 Pressure Positive End Expiratory 5 Pressure Positive End Expiratory 5 Pressure Positive End Expiratory 5 Pressure Positive End Expiratory 5 Pressure Peak Inspiratory Airway 33 Pressure Peak Inspiratory Airway 33 Pressure Peak Inspiratory Airway 29 Pressure Peak Inspiratory Airway 29 Pressure Peak Inspiratory Airway 29 Pressure Peak Inspiratory Airway 28 Pressure Peak Inspiratory Airway 28 Pressure Peak Inspiratory Airway 29 Pressure Peak Inspiratory Airway 28 Pressure Results - Laboratory Findings CBC and BMP: 05/12/16 04:21 05/12/16 04:21 ABG ABG pH 7.38 pH Units (7.32-7.45) 05/12/16 04:35 ABG pCO2 48 mmHg (35-45) H 05/12/16 04:35 ABG pO2 82 mmHg (85-104) L 05/12/16 04:35 ABG O2 Saturation 96 % (95-98) 05/12/16 04:35 PT/INR, D-dimer PT 90.4 Seconds (9.4-12.1) H* 05/12/16 06:00 Abnormal lab findings: Abnormal lab results Plt Count 105 K/mcL (140-400) L 05/12/16 04:21 Band Neutrophils % 12.0 % (0-4) H 05/12/16 04:21 Metamyelocytes % 2.0 % (0) H 05/12/16 04:21 Neutrophils # 9.8 K/mcL (1.6-8.9) H 05/12/16 04:21 Reactive Lymphocytes Present (Not Present) A 05/12/16 04:21 Toxic Granulation Present (Not Present) A 05/12/16 04:21 Platelet Estimate Slight Decrease (Normal) L 05/12/16 04:21 PT 90.4 Seconds (9.4-12.1) H* 05/12/16 06:00 INR 7.9 H* 05/12/16 06:00 ABG pCO2 48 mmHg (35-45) H 05/12/16 04:35 ABG pO2 82 mmHg (85-104) L 05/12/16 04:35 ABG HCO3 28.4 mEQ/L (21-27) H 05/12/16 04:35 ABG Total CO2 29.9 mEq/L (20-26) H 05/12/16 04:35 Sodium 135 mEq/L (136-145) L 05/12/16 04:21 Chloride 97 mEq/L (98-109) L 05/12/16 04:21 BUN 63 mg/dL (8-26) H D 05/12/16 04:21 Creatinine 2.55 mg/dL (0.72-1.25) H 05/12/16 04:21 Est GFR ( Amer) 30 (> 60) L 05/12/16 04:21 Est GFR (Non-Af Amer) 24 (> 60) L 05/12/16 04:21 Glucose 226 mg/dL (70-99) H 05/12/16 04:21 POC Glucose 208 (58-89) H 05/12/16 01:56 Calculated Osmolality 305 (280-300) H 05/12/16 04:21 Lactic Acid 2.4 mmol/L (0.5-2.2) H 05/11/16 18:47 C-Reactive Protein 33 mg/L (Less than 5) H 05/11/16 18:47 B-Natriuretic Peptide 855 pg/mL (0-100) H 05/11/16 11:56 - Clinical Findings Intake & Output: Intake & Output 05/11/16 05/11/16 05/12/16 15:59 23:59 07:59 Intake Total 549 / 549 Output Total 1250 / 1250 Balance -701 / -701
[2016-05-12] MEDS ORDERED: *HR* Midazolam HCl 2 MG/2 ML VIAL IV ONE (08:20)
[2016-05-12] MEDS ORDERED: *HR* Etomidate 20 MG/10 ML AMPUL IVP ONE (08:20)
[2016-05-12] MEDS ORDERED: Lacri-Lube 3.5 GM TUBE BOTH EYES PRN (08:55)
[2016-05-12] MEDS ORDERED: Perflutren Lipid Microsphere 1.3 ML in 0.9 % Sodium Chloride 8.7 ML IVP ONE (08:57)
[2016-05-12] MEDS ORDERED: Perflutren Lipid Microsphere 2 ML VIAL ONE (09:00)
[2016-05-12] MEDS ORDERED: Multivit/Ca/Min/Fe/FA 1 TAB TABLET PO SCH (09:00)
[2016-05-12] MEDS: Chlorhexidine Rinse 15 ML MOUTHWASH MM SCH ×2 (09:25→20:21)
[2016-05-12] MEDS ORDERED: 0.9 % Sodium Chloride 250 ML ONE (09:32)
[2016-05-12] MEDS: Lacri-Lube 3.5 GM TUBE BOTH EYES SCH ×3 (11:01→20:21)
[2016-05-12 12:09] LABS: Albumin 3.2 g/dL (3.5-5.0); Bilirubin,Direct 0.7 mg/dL (0.0-0.5); Bilirubin,Indirect 1.3 mg/dL (0.0-1.2); Globulin 3.2 g/dL (2.4-3.5); Total Protein 6.4 g/dL (6.0-8.3)
--- NOTE | 2016-05-12 13:59 | ECHO - Doppler Report ---
Echo with Imaging Enhancement Agent Name: Roxy Wei Date of Study: 05/12/2016 Date: 1935 Ht: Medical Record#: [id number] Age: 81 Wt: 183.0 lb Gender: Male BSA: Order #: [id number] Location: [facility] Room #: IC2 Reading Physician: Moon Corrales DO Agricultural Equipment Salesperson: Laura Hickey Ordering Physician: Cookie Alexander CNP Primary Physician: Samanta De Souza MD Indications: Shortness of breath Impressions: Technically challenging study with suboptimal imaging. LVEF is not well evaluated on this study, even with use of Definity. RV visually appears mildly dilated with normal function. Mild tricuspid regurgitation. Not all valves were well evaluated. Findings: Study Quality * Technically sub-optimal due to clinical status. ECG Findings * Paced rhythm. Left Ventricle * Indeterminate diastolic function. * Unable to evaluate segmental wall motion due to technical quality. * Unable to determine LVEF. Device lead * A device lead was visualized in the right atrium and right ventricle. Tricuspid Valve * Tricuspid valve not well visualized. * Mild tricuspid regurgitation. Pulmonic Valve * Pulmonic valve not well visualized. * No pulmonic stenosis. * No pulmonic regurgitation. Aortic Valve * Aortic valve not well visualized. * No aortic stenosis. * No aortic regurgitation. Left Atrium * Left atrium is not well visualized. Right Atrium * Right atrium is not well visualized. Pulmonary Artery * Pulmonary artery not well visualized. Mitral Valve * Mitral valve not well visualized. * No mitral regurgitation. * No mitral stenosis. Right Ventricle * RV appears mildly dilated with normal function. Interatrial Septum * No evidence of PFO by color Doppler. IVC * The IVC is not well evaluated. Pericardium * There is no pericardial effusion present. Aorta * Not well visualized. History Hypertension Diabetes Hypercholesteremia Years 5 Packs 0.5 Family History of CAD History of CAD/PTCA Myocardial Infarction Congestive Heart Failure Pacer/ICD Implant 07/13/2014 a Previous Echo was performed. Contrast: Definity 1.3 ml in 8.7 ml of saline 3 ml. Measurements: BP: 113/ 62 2D Normal Values IVSd: 1.40 cm 0.6 - 1.0 cm LVIDd: 4.20 cm 3.7 - 5.6 cm LVPWd: 1.40 cm 0.6 - 1.1 cm LVIDs: 2.80 cm 1.5 - 3.6 cm LA: 4.20 cm 2.0 - 4.0cm LA volume: 93 Mitral Valve Peak E' Lat Suman:12.3 cm/s Peak E' Med Suman:7.41 cm/s E/E' Lat Ratio:6.7 E/E' Med Ratio:11.1 Updated by Moon Corrales on 05/12/2016 1:52:17 PM electronically signed on 05/12/2016 1:53:51 PM with status of [employer] [place]: 1=Normal, 2=Hypokinesis, 3=Akinesis, 4=Dyskinesis, 5=Aneurysmal, 6=Hyperkinetic, X=Not Visualized (Blank)=Missing
[2016-05-12] MEDS: Bisacodyl 10 MG RECTAL SUPPOSITORY RC SCH (14:16)
[2016-05-12 14:56] LABS: INR 2.4; Prothrombin Time 26.4 Seconds (9.4-12.1)
[2016-05-12] MEDS ORDERED: Metoclopramide 10 MG/10 ML UD.LIQ PO SCH (18:00)
[2016-05-12 20:00] LABS: Calcium 9.5 mg/dL (8.6-10.8); Potassium 3.4 mEq/L (3.5-4.5)
[2016-05-12] MEDS ORDERED: methylPREDNISolone 125 MG/2 ML VIAL IM ONE (20:02)
[2016-05-12] MEDS ORDERED: methylPREDNISolone 125 MG/2 ML VIAL IVP ONE (20:02)
[2016-05-12] MEDS: Azithromycin 500 MG in D5% in Water 250 ML IVPB SCH (22:56)
[2016-05-13] MEDS: Lacri-Lube 3.5 GM TUBE BOTH EYES SCH ×6 (00:29→21:11)
[2016-05-13] MEDS: Insulin LISPRO 300 UNITS/3 ML VIAL SQ SCH ×5 (00:29→23:30)
[2016-05-13] MEDS: Piperacillin/Tazobactam 3.375 GM in D5% in Water (Mini-Bag+) 100 ML IVPB SCH ×2 (00:33→06:59)
[2016-05-13] MEDS: Albuterol 2.5 MG/3 ML NEBULIZER IH SCH ×4 (03:06→21:59)
[2016-05-13 04:09] LABS: Hematocrit 37.2 % (37.5-50.1); Immature Granulocytes % 0.7 % (0-4)
[2016-05-13 04:11] LABS: Basophils % 0.1 %; Eosinophils % 0.1 %; Hemoglobin 12.2 g/dL (12.9-16.9); Immature Platelets 8.7 % (1.1-6.1); Lymphocytes # 0.5 K/mcL (0.6-4.6); Lymphocytes % 6.6 %; Mean Corpuscular HGB Conc 32.8 g/dL (31.6-35.5); Mean Corpuscular Hemoglobin 30.5 pg (28.0-33.3); Mean Platelet Volume 12.2 fL (9.4-12.4); Monocytes # 0.7 K/mcL (0.0-1.3); Monocytes % 8.2 %; Neutrophils # 6.9 K/mcL (1.6-8.9); Segmented Neutrophils % 84.3 %
[2016-05-13 04:19] LABS: Calcium 9.3 mg/dL (8.6-10.8); Potassium 3.6 mEq/L (3.5-4.5)
[2016-05-13 04:22] LABS: Platelet Count 63 K/mcL (140-400)
[2016-05-13 04:39] LABS: Platelet Estimate Decreased (Normal); Toxic Granulation Present (Not Present)
[2016-05-13 05:13] LABS: ABG Base Excess 0.8 mEq/L (-2.0 to 3.0); ABG Oxygen Saturation 97 % (95-98); ABG PCO2 43 mmHg (35-45); ABG PH 7.39 pH Units (7.32-7.45); ABG PO2 91 mmHg (85-104); ABG TCO2 27.3 mEq/L (20-26); Blood Gas FiO2 40 %
[2016-05-13] MEDS: Aspirin Enteric Coated 81 MG Tablet PO SCH (06:59)
[2016-05-13] MEDS: Pantoprazole 40 MG VIAL IVP SCH (06:59)
[2016-05-13] MEDS: Chlorhexidine Rinse 15 ML MOUTHWASH MM SCH ×2 (06:59→21:11)
[2016-05-13] MEDS: Bisacodyl 10 MG RECTAL SUPPOSITORY RC SCH (06:59)
[2016-05-13] MEDS: VITAMIN D3 PO SCH ×2 (07:00→21:12)
[2016-05-13] MEDS: CALCIUM CARBONATE PO SCH ×2 (07:00→21:12)
--- NOTE | 2016-05-13 07:04 | Pulmonology Progress Note ---
<JohnAbebe W - Last Filed: 05/13/16 14:48> Date of Encounter: 05/13/16 Objective PUL Vital signs: Last Vital Signs Temp 97.6 F 05/13/16 07:00 Pulse 73 05/13/16 10:00 Resp 26 05/13/16 10:00 BP 117/64 05/13/16 10:00 Pulse Ox 92 L 05/13/16 10:00 Ventilator Settings Ventilator Settings: Ventilator Settings, Last 8 Hours Ventilator Mode CPAP Ventilator Mode CPAP Ventilator Mode CPAP Ventilator Mode A/C Ventilator Mode A/C Ventilator Mode A/C Ventilator Mode A/C Ventilator Mode A/C Ventilator Mode A/C Ventilator Mode A/C Ventilator Mode A/C Ventilator Tidal Volume 500 Setting Ventilator Tidal Volume 500 Setting Ventilator Tidal Volume 500 Setting Ventilator Tidal Volume 500 Setting Ventilator Tidal Volume 500 Setting Ventilator Tidal Volume 500 Setting Ventilator Tidal Volume 500 Setting Ventilator Tidal Volume 500 Setting Ventilator Tidal Volume 500 Setting Ventilator Respiratory Rate 16 Setting Ventilator Respiratory Rate 16 Setting Ventilator Respiratory Rate 16 Setting Ventilator Respiratory Rate 16 Setting Ventilator Respiratory Rate 16 Setting Ventilator Respiratory Rate 16 Setting Ventilator Respiratory Rate 16 Setting Ventilator Respiratory Rate 16 Setting Ventilator Respiratory Rate 16 Setting Actual Respiratory Rate 25 Actual Respiratory Rate 24 Actual Respiratory Rate 22 Actual Respiratory Rate 22 Actual Respiratory Rate 20 Actual Respiratory Rate 23 Actual Respiratory Rate 22 Actual Respiratory Rate 24 Positive End Expiratory 5 Pressure Positive End Expiratory 5 Pressure Positive End Expiratory 5 Pressure Positive End Expiratory 5 Pressure Positive End Expiratory 5 Pressure Positive End Expiratory 5 Pressure Positive End Expiratory 5 Pressure Positive End Expiratory 5 Pressure Positive End Expiratory 5 Pressure Peak Inspiratory Airway 24 Pressure Peak Inspiratory Airway 22 Pressure Peak Inspiratory Airway 23 Pressure Peak Inspiratory Airway 23 Pressure Peak Inspiratory Airway 25 Pressure Peak Inspiratory Airway 24 Pressure Peak Inspiratory Airway 24 Pressure Peak Inspiratory Airway 23 Pressure Results - Laboratory Findings CBC and BMP: 05/13/16 03:46 05/13/16 03:46 ABG ABG pH 7.35 pH Units (7.32-7.45) 05/13/16 09:44 ABG pCO2 46 mmHg (35-45) H 05/13/16 09:44 ABG pO2 63 mmHg (85-104) L 05/13/16 09:44 ABG O2 Saturation 91 % (95-98) L 05/13/16 09:44 PT/INR, D-dimer PT 17.8 Seconds (9.4-12.1) H 05/13/16 07:51 Abnormal lab findings: Abnormal lab results RBC 4.00 M/mcL (4.19-5.50) L 05/13/16 03:46 Hgb 12.2 g/dL (12.9-16.9) L 05/13/16 03:46 Hct 37.2 % (37.5-50.1) L 05/13/16 03:46 Plt Count 63 K/mcL (140-400) L 05/13/16 03:46 Band Neutrophils % 12.0 % (0-4) H 05/12/16 04:21 Metamyelocytes % 2.0 % (0) H 05/12/16 04:21 Lymphocytes # 0.5 K/mcL (0.6-4.6) L 05/13/16 03:46 Reactive Lymphocytes Present (Not Present) A 05/12/16 04:21 Toxic Granulation Present (Not Present) A 05/13/16 03:46 Platelet Estimate Decreased (Normal) L 05/13/16 03:46 Immature Plt Fraction 8.7 % (1.1-6.1) H 05/13/16 03:46 PT 17.8 Seconds (9.4-12.1) H 05/13/16 07:51 ABG pCO2 46 mmHg (35-45) H 05/13/16 09:44 ABG pO2 63 mmHg (85-104) L 05/13/16 09:44 ABG Total CO2 26.8 mEq/L (20-26) H 05/13/16 09:44 ABG O2 Saturation 91 % (95-98) L 05/13/16 09:44 Sodium 132 mEq/L (136-145) L 05/13/16 03:46 Carbon Dioxide 18 mEq/L (19-29) L 05/13/16 03:46 BUN 67 mg/dL (8-26) H 05/13/16 03:46 Creatinine 2.40 mg/dL (0.72-1.25) H 05/13/16 03:46 Est GFR ( Amer) 32 (> 60) L 05/13/16 03:46 Est GFR (Non-Af Amer) 26 (> 60) L 05/13/16 03:46 BUN/Creatinine Ratio 28 (6-26) H 05/13/16 03:46 Glucose 199 mg/dL (70-99) H 05/13/16 03:46 POC Glucose 223 (58-89) H 05/13/16 05:23 Total Bilirubin 2.0 mg/dL (0.2-1.2) H 05/12/16 04:21 Direct Bilirubin 0.7 mg/dL (0.0-0.5) H 05/12/16 04:21 Indirect Bilirubin 1.3 mg/dL (0.0-1.2) H 05/12/16 04:21 AST 42 Units/L (5-34) H 05/12/16 04:21 C-Reactive Protein 33 mg/L (Less than 5) H 05/11/16 18:47 B-Natriuretic Peptide 855 pg/mL (0-100) H 05/11/16 11:56 Albumin 3.2 g/dL (3.5-5.0) L 05/12/16 04:21 Albumin/Globulin Ratio 1.0 (1.1-2.2) L 05/12/16 04:21 Lipase 104 Units/L (8-78) H 05/12/16 04:21 - Microbiology Findings Microbiology Findings: Microbiology, Last 48 Hours 05/12/16 11:16 Sputum Culture - Preliminary Sputum 05/12/16 10:30 Legionella Antigen - Final Urine,Catheterized 05/12/16 10:30 Streptococcus pneumoniae Antigen (M - Final Urine,Catheterized - Clinical Findings Intake & Output: Intake & Output 05/12/16 05/13/16 05/13/16 23:59 07:59 15:59 Intake Total 168.4 / 168.4 601.6 / 601.6 0 / 0 Output Total 1400 / 1400 845 / 845 Balance -1231.6 / -1231.6 -243.4 / -243.4 0 / 0 Weight 78.925 kg 80 kg Consult Discharge Plan - Plan Referrals: Samanta De Souza MD [Primary Care Provider] - - Attending Attestation I examined this patient and my medical decision-making was reviewed with the SALES AND SERVICE ADVISOR/PA/Advanced Practice Nurse/Resident Physician. I agree with the documented findings, disposition and treatment plan as described except to the extent set forth below. Patient seen and examined at bedside Labs, radiology, chart personally reviewed. All lines examined without evidence of infection. Neuropsych: Awake and alert follows all commands no deficits. Pulm: Acute hypoxic respiratory failure s/t to Asp PNA. Extubated. Wean Fio2 to keep sats around 92%. COPD with mild exacerbation cont BDs. Switch to enteral steroids Cards: ECG without STEMI. trop wnl. Acute on Chronic Systolic HF. diurese as tolerated by renal function for pulmonary edema. Afib rate controlled on LTA. FEN-GI: Concern for illeus with aspiration. CT A/P c/w gastroparesis without obstruction. Patient had bowel movement today. Cont bowel regimen. Consider Reglan as needed. . Renal: EREN on CKD. wih mild NAGMA. Good UOP cont Diuresis. Check renal function daily. Consider Nephro consult if creatinine worsens. ID: Severe Sepsis s/t aspiration PNA now on cefepime/flagyl for asp pneumonia. GNRs in sputum pending final sensitivities Heme/Onc: on LTA for afib with warfarin induced coagulopathy without evidence of bleeding. Given FFP yesterday with resolution of coagulopathy. Cover with subcutaneous heparin and restart warfarin today no indication for bridging. New thrombocytopenia which is likely related to sepsis use of Zosyn. Stopping that we will trend thrombocytopenia no bleeding no indication for transfusion Endo: glucose monitored Integ/MSK: skin care per ICU protocol CODE:Full code (HKPOA) updated. <Franklin Middleton - Last Filed: 05/13/16 16:03> Date of Encounter: 05/13/16 Time of Encounter: 07:04 Assessment and Plan (1) Respiratory failure with hypoxia Current Visit: Yes Status: Acute Patient was admitted for worsening shortness of breath x1 day prior to admission. Around 01:00am yesterday, patient had increased respiratory distress and decision made to intubate as patient was unable to protect airway. Vent settings: Tv 500, rate 16, FiO2 40%, PEEP 5. Viral and respiratory panels negative. Blood cultures negative to date, gram negative rods in sputum culture. ABG: pH 7.39, pCO2 43, pO2 91, O2 97% Acute Respiratory failure likely secondary aspiration pneumonia. Succesfully extubated. Stop Azithromycin and Zosyn. Start cefepime and flagyl. Prednisone qd. Qualifiers: Chronicity: acute Qualified Code(s): J96.01 - Acute respiratory failure with hypoxia (2) Gastric dysmotility Current Visit: Yes Status: Acute Patient had continuous brown fuculent output from OG yesterday, overnight has decreased significantly. CT abdomen/pelvis revealed distension of the stomach with retained fluid, mild distension of the duodenal C-loop without evidence of obstruction. Suggestive of gastric outlet obstruction or severe gastroparesis. Exam noted hypoactive to no bowel sounds yesterday. Exam this morning reveals normal bowel sounds throughout with some improvement of distension. Initiate and manage NG with LIWS Continue monitoring labs. Continue with antibiotics for coverage of aspiration. Reglan not ordered due to abnormal EKG. (3) Elevated INR Current Visit: Yes Status: Acute Patient with a history of paroxysmal afib on chronic coumadin therapy. INR jumped to 7.3, 7.9 yesterday morning. No active bleed was noted. Vit K and FFP were given. INR returned to 2.4, Hb 12.2, Hct 37.2. May consider reinstituting warfarin once patient is more stable. (4) Leukocytosis Current Visit: Yes Status: Acute Leukocytosis resolved. WBC 8.2, down from 11.1 yesterday. Qualifiers: Leukocytosis type: unspecified Qualified Code(s): D72.829 - Elevated white blood cell count, unspecified (5) Congestive heart failure Current Visit: Yes Status: Acute Echo completed yesterday was sub-optimal due to clinical status and unable to determine current LVEF. Previous Echo completed 04/08/15 revealed LVEF 35%. Review of CXR and CT imaging is in favor of other pathology causing initial complaint of shortness of breath, not an acute exacerbation of CHF. EKG revealed atrial fibrillation. BNP 855. Qualifiers: Congestive heart failure type: unspecified congestive heart failure type Congestive heart failure chronicity: acute Qualified Code(s): I50.9 - Heart failure, unspecified (6) Ivoou-rk-unzytgc renal failure Current Visit: Yes Status: Acute Acute on chronic stage 3 renal failure. Cr 2.40 this morning. Urine output 1800mL/24 hrs. Continue monitoring renal function. (7) Paroxysmal atrial fibrillation Current Visit: Yes Status: Acute Continue to monitor Coag panel. Reinitiate Coumadin. (8) DVT prophylaxis Current Visit: Yes Status: Acute heparin for dvt ppx. Subjective Principal diagnosis: Acute Respiratory Failure, Aspiration Interval history: Patient did well overnight on ventilator, continued but decreasing OG output, vitals stable, and bowel sounds are audible now. Patient comfortable and sedated on ventilator, arousable with extremity movement when prompted. Successfully extubated this morning. Comfortable on NC oxygen. No complaints at this time. Objective PUL Vital signs: Last Vital Signs Temp 97.8 F 05/13/16 03:00 Pulse 70 05/13/16 06:00 Resp 22 05/13/16 06:15 BP 91/57 05/13/16 06:15 Pulse Ox 96 05/13/16 06:15 General appearance: no acute distress, other (comfortably sedated on ventilator , arousable, moves all extremities) Eyes: nonicteric ENT: other (OG tube, 150mL brown fuculent output) Neck: supple, no lymphadenopathy, no JVD Effort: normal Auscultation: bilateral: clear Cardiovascular: irregular rhythm Gastrointestinal: normoactive bowel sounds, soft Integumentary: normal Extremities: no cyanosis, no edema, pink and warm, pulses normal Musculoskeletal: no deformities non-focal exam, pupils equal and round Ventilator Settings Ventilator Settings: Ventilator Settings, Last 8 Hours Ventilator Mode A/C Ventilator Mode A/C Ventilator Mode A/C Ventilator Mode A/C Ventilator Mode A/C Ventilator Mode A/C Ventilator Mode A/C Ventilator Mode A/C Ventilator Mode A/C Ventilator Mode A/C Ventilator Mode A/C Ventilator Mode A/C Ventilator Tidal Volume 500 Setting Ventilator Tidal Volume 500 Setting Ventilator Tidal Volume 500 Setting Ventilator Tidal Volume 500 Setting Ventilator Tidal Volume 500 Setting Ventilator Tidal Volume 500 Setting Ventilator Tidal Volume 500 Setting Ventilator Tidal Volume 500 Setting Ventilator Tidal Volume 500 Setting Ventilator Tidal Volume 500 Setting Ventilator Tidal Volume 500 Setting Ventilator Tidal Volume 500 Setting Ventilator Respiratory Rate 16 Setting Ventilator Respiratory Rate 16 Setting Ventilator Respiratory Rate 16 Setting Ventilator Respiratory Rate 16 Setting Ventilator Respiratory Rate 16 Setting Ventilator Respiratory Rate 16 Setting Ventilator Respiratory Rate 16 Setting Ventilator Respiratory Rate 16 Setting Ventilator Respiratory Rate 16 Setting Ventilator Respiratory Rate 16 Setting Ventilator Respiratory Rate 16 Setting Ventilator Respiratory Rate 16 Setting Actual Respiratory Rate 22 Actual Respiratory Rate 22 Actual Respiratory Rate 20 Actual Respiratory Rate 23 Actual Respiratory Rate 22 Actual Respiratory Rate 24 Actual Respiratory Rate 20 Actual Respiratory Rate 25 Actual Respiratory Rate 24 Actual Respiratory Rate 24 Actual Respiratory Rate 22 Positive End Expiratory 5 Pressure Positive End Expiratory 5 Pressure Positive End Expiratory 5 Pressure Positive End Expiratory 5 Pressure Positive End Expiratory 5 Pressure Positive End Expiratory 5 Pressure Positive End Expiratory 5 Pressure Positive End Expiratory 5 Pressure Positive End Expiratory 5 Pressure Positive End Expiratory 5 Pressure Positive End Expiratory 5 Pressure Positive End Expiratory 5 Pressure Peak Inspiratory Airway 23 Pressure Peak Inspiratory Airway 23 Pressure Peak Inspiratory Airway 25 Pressure Peak Inspiratory Airway 24 Pressure Peak Inspiratory Airway 24 Pressure Peak Inspiratory Airway 23 Pressure Peak Inspiratory Airway 26 Pressure Peak Inspiratory Airway 26 Pressure Peak Inspiratory Airway 27 Pressure Peak Inspiratory Airway 26 Pressure Peak Inspiratory Airway 27 Pressure Results - Laboratory Findings CBC and BMP: 05/13/16 03:46 05/13/16 14:33 ABG ABG pH 7.39 pH Units (7.32-7.45) 05/13/16 05:05 ABG pCO2 43 mmHg (35-45) 05/13/16 05:05 ABG pO2 91 mmHg (85-104) 05/13/16 05:05 ABG O2 Saturation 97 % (95-98) 05/13/16 05:05 PT/INR, D-dimer PT 26.4 Seconds (9.4-12.1) H D 05/12/16 14:28 Abnormal lab findings: Abnormal lab results RBC 4.00 M/mcL (4.19-5.50) L 05/13/16 03:46 Hgb 12.2 g/dL (12.9-16.9) L 05/13/16 03:46 Hct 37.2 % (37.5-50.1) L 05/13/16 03:46 Plt Count 63 K/mcL (140-400) L 05/13/16 03:46 Band Neutrophils % 12.0 % (0-4) H 05/12/16 04:21 Metamyelocytes % 2.0 % (0) H 05/12/16 04:21 Lymphocytes # 0.5 K/mcL (0.6-4.6) L 05/13/16 03:46 Reactive Lymphocytes Present (Not Present) A 05/12/16 04:21 Toxic Granulation Present (Not Present) A 05/13/16 03:46 Platelet Estimate Decreased (Normal) L 05/13/16 03:46 Immature Plt Fraction 8.7 % (1.1-6.1) H 05/13/16 03:46 PT 26.4 Seconds (9.4-12.1) H D 05/12/16 14:28 ABG Total CO2 27.3 mEq/L (20-26) H 05/13/16 05:05 Sodium 132 mEq/L (136-145) L 05/13/16 03:46 Carbon Dioxide 18 mEq/L (19-29) L 05/13/16 03:46 BUN 67 mg/dL (8-26) H 05/13/16 03:46 Creatinine 2.40 mg/dL (0.72-1.25) H 05/13/16 03:46 Est GFR ( Amer) 32 (> 60) L 05/13/16 03:46 Est GFR (Non-Af Amer) 26 (> 60) L 05/13/16 03:46 BUN/Creatinine Ratio 28 (6-26) H 05/13/16 03:46 Glucose 199 mg/dL (70-99) H 05/13/16 03:46 POC Glucose 223 (58-89) H 05/13/16 05:23 Total Bilirubin 2.0 mg/dL (0.2-1.2) H 05/12/16 04:21 Direct Bilirubin 0.7 mg/dL (0.0-0.5) H 05/12/16 04:21 Indirect Bilirubin 1.3 mg/dL (0.0-1.2) H 05/12/16 04:21 AST 42 Units/L (5-34) H 05/12/16 04:21 C-Reactive Protein 33 mg/L (Less than 5) H 05/11/16 18:47 B-Natriuretic Peptide 855 pg/mL (0-100) H 05/11/16 11:56 Albumin 3.2 g/dL (3.5-5.0) L 05/12/16 04:21 Albumin/Globulin Ratio 1.0 (1.1-2.2) L 05/12/16 04:21 Lipase 104 Units/L (8-78) H 05/12/16 04:21 - Microbiology Findings Microbiology Findings: Microbiology, Last 48 Hours 05/12/16 11:16 Sputum Culture - Preliminary Sputum 05/12/16 10:30 Legionella Antigen - Final Urine,Catheterized 05/12/16 10:30 Streptococcus pneumoniae Antigen (M - Final Urine,Catheterized - Clinical Findings Intake & Output: Intake & Output 05/12/16 05/12/16 05/13/16 15:59 23:59 07:59 Intake Total 1516 / 1516 168.4 / 168.4 464.5 / 464.5 Output Total 1350 / 1350 1400 / 1400 495 / 495 Balance 166 / 166 -1231.6 / -1231.6 -30.5 / -30.5 Weight 83.3 kg 78.925 kg
[2016-05-13] MEDS ORDERED: Furosemide 40 MG/4 ML VIAL IVP ONE (07:35)
[2016-05-13 08:27] LABS: INR 1.6; Prothrombin Time 17.8 Seconds (9.4-12.1)
[2016-05-13] MEDS: Cefepime HCl 1,000 MG in D5% in Water (Mini-Bag+) 100 ML IVPB SCH (09:39)
[2016-05-13 09:53] LABS: ABG Base Excess -0.6 mEq/L (-2.0 to 3.0); ABG HCO3 25.4 mEQ/L (21-27); ABG Oxygen Saturation 91 % (95-98); ABG PCO2 46 mmHg (35-45); ABG PH 7.35 pH Units (7.32-7.45); ABG PO2 63 mmHg (85-104); ABG TCO2 26.8 mEq/L (20-26); Blood Gas Liter Flow 3 L/MIN
[2016-05-13 09:54] LABS: Blood Gas FiO2 32 %
--- NOTE | 2016-05-13 13:10 | Electrocardiograph Report ---
[address] [place], [place] [address] Test Date: 2016-05-11 Pat Name: Roxy Wei Department: 104 Room: 02 Gender: M Outside Medical Sales Representative: : 1935 Requested By: Jac Siegel Order Number: [id number] Reading MD: Moon Corrales Measurements Intervals [place] Rate: 70 P: [place]: 0 QRS: 269 QRSD: 167 T: -81 QT: 474 QTc: 494 Interpretive Statements ELECTRONIC VENTRICULAR PACEMAKER Electronically Signed On 05-13-2016 13:09:17 EST by Moon Corrales
[2016-05-13] MEDS: *HR* Heparin 5,000 UNIT/ML VIAL SQ SCH ×2 (14:07→23:28)
--- NOTE | 2016-05-13 14:14 | Electrocardiograph Report ---
[address] [place] [address] Test Date: 2016-05-12 Pat Name: Roxy Wei Department: 109 Room: [facility] Gender: M Floorperson: : 1935 Requested By: Franklin Middleton Order Number: [id number] Reading MD: Moon Corrales Measurements Intervals [place] Rate: 70 P: [place]: 0 QRS: 108 QRSD: 155 T: -71 QT: 447 QTc: 467 Interpretive Statements ELECTRONIC VENTRICULAR PACEMAKER ABNORMAL RHYTHM ECG Electronically Signed On 05-13-2016 14:12:54 EST by Moon Corrales
[2016-05-13] MEDS: MetroNIDAZOLE 500 MG/100 ML 500 MG/100 ML BAG IVPB SCH ×2 (15:00→23:28)
[2016-05-13 15:12] LABS: Calcium 9.2 mg/dL (8.6-10.8); Magnesium 2.3 mg/dL (1.6-2.6); Potassium 3.3 mEq/L (3.5-4.5)
[2016-05-13] MEDS ORDERED: *HR* Warfarin 5 MG TABLET PO SCH ×2 (17:18→18:00)
[2016-05-14] MEDS: Lacri-Lube 3.5 GM TUBE BOTH EYES SCH ×2 (03:33→07:45)
[2016-05-14] MEDS: Albuterol 2.5 MG/3 ML NEBULIZER IH SCH ×4 (03:44→22:03)
[2016-05-14] MEDS: Insulin LISPRO 300 UNITS/3 ML VIAL SQ SCH ×4 (06:21→22:42)
[2016-05-14 06:41] LABS: Hemoglobin 13.1 g/dL (12.9-16.9); Mean Corpuscular HGB Conc 34.7 g/dL (31.6-35.5); Red Cell Distribution Width 13.9 % (11.5-14.5)
[2016-05-14 06:43] LABS: Hematocrit 37.7 % (37.5-50.1); Immature Platelets 6.7 % (1.1-6.1); Mean Corpuscular Hemoglobin 30.6 pg (28.0-33.3); Mean Corpuscular Volume 88.1 fL (83.0-100.0); Mean Platelet Volume 11.5 fL (9.4-12.4); Red Blood Count 4.28 M/mcL (4.19-5.50)
[2016-05-14 06:46] LABS: INR 1.8
[2016-05-14 06:50] LABS: Calcium 9.4 mg/dL (8.6-10.8); Potassium 3.2 mEq/L (3.5-4.5)
[2016-05-14 07:15] LABS: Platelet Count 95 K/mcL (140-400)
[2016-05-14 07:25] LABS: Lymphocytes # 0.8 K/mcL (0.6-4.6); Monocytes # 0.5 K/mcL (0.0-1.3); Neutrophils # 8.3 K/mcL (1.6-8.9); Platelet Estimate Decreased (Normal); Reactive Lymphocytes Present (Not Present)
[2016-05-14] MEDS: *HR* Heparin 5,000 UNIT/ML VIAL SQ SCH ×3 (07:44→22:40)
[2016-05-14] MEDS: MetroNIDAZOLE 500 MG/100 ML 500 MG/100 ML BAG IVPB SCH (07:45)
[2016-05-14] MEDS: VITAMIN D3 PO SCH (07:53)
[2016-05-14] MEDS: CALCIUM CARBONATE PO SCH (07:53)
[2016-05-14] MEDS: Chlorhexidine Rinse 15 ML MOUTHWASH MM SCH (07:53)
[2016-05-14] MEDS: Aspirin Enteric Coated 81 MG Tablet PO SCH (07:59)
[2016-05-14] MEDS: Pantoprazole 40 MG VIAL IVP SCH (08:00)
[2016-05-14] MEDS: Bisacodyl 10 MG RECTAL SUPPOSITORY RC SCH (08:00)
--- NOTE | 2016-05-14 08:55 | Pulmonology Progress Note ---
<Ayo Drew - Last Filed: 05/14/16 12:45> Date of Encounter: 05/14/16 Time of Encounter: 06:30 Assessment and Plan (1) Respiratory failure with hypoxia Current Visit: Yes Status: Acute Acute respiratory failure improved, successful extubation performed. Patient maintaining decent oxygen saturations on 2 L nasal cannula. Viral cultures negative, blood cultures negative, urine culture negative, sputum culture positive for Klebsiella pneumoniae (pansensitive). Patient on cefepime and Flagyl. Previously on azithromycin Patient has remained afebrile with improvements seen inpatient inability to breathe, will discontinue metronidazole and continue cefepime. Stop Flagyl Continue cefepime Continue breathing treatments Continue oral prednisone Qualifiers: Chronicity: acute Qualified Code(s): J96.01 - Acute respiratory failure with hypoxia (2) Gastric dysmotility Current Visit: Yes Status: Acute Patient reports having increased hunger today, bowel sounds auscultated and were normal. No distention or patient discomfort noted on palpation of abdomen. Patient tolerating ice chips and water without difficulty. We will start diabetic diet, mechanically soft/altered Continue to monitor We will change Bisacodyl to when necessary (3) [id number] renal failure Current Visit: Yes Status: Acute Serum creatinine decreased to 1.94 with estimated GFR of 33. This is improved since yesterday, but still below patient normal of GFR around 40. Decent diuresis obtained with improvement in patient kidney function. We will continue to monitor urinary output and daily labs (4) Congestive heart failure Current Visit: Yes Status: Acute Patient has history of congestive heart failure with reduced ejection fraction, pacemaker in place. EKG negative for STEMI, troponins negative. Decent urinary output achieved, net -4.8 L since admission. Patient on Lipitor, aspirin, carvedilol Kidney function improved since yesterday We will continue to monitor and diuresis further if necessary Qualifiers: Congestive heart failure type: unspecified congestive heart failure type Congestive heart failure chronicity: chronic Qualified Code(s): I50.9 - Heart failure, unspecified (5) A-fib Current Visit: Yes Status: Acute Patient on Coumadin at home normally and takes carvedilol. Continue home Coumadin Continue carvedilol Qualifiers: Atrial fibrillation type: paroxysmal Qualified Code(s): I48.0 - Paroxysmal atrial fibrillation (6) DVT prophylaxis Current Visit: Yes Status: Acute GI prophylaxis: Pantoprazole DVT prophylaxis: Warfarin and heparin until therapeutic Neuro/sedation: Patient awake and alert and answers questions appropriately, no concerns this time Pulmonary: Acute hypoxic respiratory failure (improving), patient satting well on 2 L nasal cannula. We will continue to wean oxygen to maintain oxygen saturation above 92%. Wheezing auscultated on exam indicative of continued exacerbation, will continue bronchodilators. Patient now able to swallow and meds, including steroids transition to by mouth Cardiovascular: History of HFrEF and atrial fibrillation. Pacemaker in place, on carvedilol, aspirin, Lipitor, Coumadin. Currently rate controlled and decent diuresis obtained previously with slight improvement in renal function. We will continue to monitor and diuresis further if needed. Fluids/electrolytes: We will replace patient's potassium with 40 mEq by mouth GI: Previous concern for ileus versus mild gastroparesis. Bowel movement seen, decreased distention seen, no tenderness, patient endorses hunger. We will allow by mouth and monitor patient Renal: History of CK D stage III, improved renal function seen with labs today. We will continue to monitor urinary output and renal function. ID: Patient had severe sepsis due to aspiration pneumonia, sputum culture positive for pansensitive Klebsiella pneumonia. Will stop azithromycin and aztreonam. Continue cefepime. Heme/onc: Patient initially has supratherapeutic INR (on warfarin for A. fib), this was successfully reversed. No signs of active bleeding, patient on heparin and will continue warfarin. Endo: Patient history of diabetes and normally takes 12 units twice a day long- acting insulin. Will restart long-acting insulin at 5 units twice a day and continue low-dose corrective scale. We will continue to monitor blood glucose Integumentary: Skin care per ICU protocol Disposition: Patient safe for transfer to any telemetry bed CODE STATUS: Full code Subjective Principal diagnosis: Acute Respiratory Failure, Aspiration Interval history: Patient sitting in bed all comfortably chewing on ice chips. Patient reports mild improvement in his ability to breathe, mild cough (nonproductive), denies wheezing, denies chest congestion. He denies fever, denies chest pain, denies nausea/vomiting, denies abdominal pain. He reports being comfortable and hungry this morning. Objective PUL Vital signs: Last Vital Signs Temp 98.3 F 05/14/16 08:00 Pulse 73 05/14/16 08:00 Resp 26 05/14/16 08:00 BP 148/79 05/14/16 08:00 Pulse Ox 97 05/14/16 08:00 General appearance: no acute distress, alert Eyes: nonicteric Effort: normal Auscultation: left: wheezes, bilateral: rales Cardiovascular: regular rate and rhythm (paced) Gastrointestinal: normoactive bowel sounds, soft, non-tender, non-distended Integumentary: normal Extremities: no cyanosis, no edema, no clubbing, pink and warm, pulses normal, other (Skin turgor normal, capillary refill 3 seconds) normal mental status, pupils equal and round mood appropriate, affect normal Results - Laboratory Findings CBC and BMP: 05/14/16 06:12 05/14/16 06:19 ABG ABG pH 7.35 pH Units (7.32-7.45) 05/13/16 09:44 ABG pCO2 46 mmHg (35-45) H 05/13/16 09:44 ABG pO2 63 mmHg (85-104) L 05/13/16 09:44 ABG O2 Saturation 91 % (95-98) L 05/13/16 09:44 PT/INR, D-dimer PT 20.0 Seconds (9.4-12.1) H 05/14/16 06:19 Abnormal lab findings: Abnormal lab results Plt Count 95 K/mcL (140-400) L D 05/14/16 06:12 Band Neutrophils % 19.0 % (0-4) H 05/14/16 06:12 Metamyelocytes % 2.0 % (0) H 05/14/16 06:12 Reactive Lymphocytes Present (Not Present) A 05/14/16 06:12 Toxic Granulation Present (Not Present) A 05/13/16 03:46 Platelet Estimate Decreased (Normal) L 05/14/16 06:12 Immature Plt Fraction 6.7 % (1.1-6.1) H 05/14/16 06:12 PT 20.0 Seconds (9.4-12.1) H 05/14/16 06:19 ABG pCO2 46 mmHg (35-45) H 05/13/16 09:44 ABG pO2 63 mmHg (85-104) L 05/13/16 09:44 ABG Total CO2 26.8 mEq/L (20-26) H 05/13/16 09:44 ABG O2 Saturation 91 % (95-98) L 05/13/16 09:44 Potassium 3.2 mEq/L (3.5-4.5) L 05/14/16 06:19 BUN 64 mg/dL (8-26) H 05/14/16 06:19 Creatinine 1.94 mg/dL (0.72-1.25) H 05/14/16 06:19 Est GFR ( Amer) 41 (> 60) L 05/14/16 06:19 Est GFR (Non-Af Amer) 33 (> 60) L 05/14/16 06:19 BUN/Creatinine Ratio 33 (6-26) H 05/14/16 06:19 Glucose 180 mg/dL (70-99) H 05/14/16 06:19 POC Glucose 185 (58-89) H 05/14/16 06:20 Calculated Osmolality 321 (280-300) H 05/14/16 06:19 Total Bilirubin 2.0 mg/dL (0.2-1.2) H 05/12/16 04:21 Direct Bilirubin 0.7 mg/dL (0.0-0.5) H 05/12/16 04:21 Indirect Bilirubin 1.3 mg/dL (0.0-1.2) H 05/12/16 04:21 AST 42 Units/L (5-34) H 05/12/16 04:21 C-Reactive Protein 33 mg/L (Less than 5) H 05/11/16 18:47 B-Natriuretic Peptide 855 pg/mL (0-100) H 05/11/16 11:56 Albumin 3.2 g/dL (3.5-5.0) L 05/12/16 04:21 Albumin/Globulin Ratio 1.0 (1.1-2.2) L 05/12/16 04:21 Lipase 104 Units/L (8-78) H 05/12/16 04:21 - Microbiology Findings Microbiology Findings: Microbiology, Last 48 Hours 05/12/16 11:16 Sputum Culture - Final Sputum Klebsiella pneumoniae 05/12/16 10:30 Legionella Antigen - Final Urine,Catheterized 05/12/16 10:30 Streptococcus pneumoniae Antigen (M - Final Urine,Catheterized - Clinical Findings Intake & Output: Intake & Output 05/13/16 05/14/16 05/14/16 23:59 07:59 15:59 Intake Total 200 / 200 100 / 100 Output Total 2700 / 2700 1100 / 1100 Balance -2500 / -2500 -1000 / -1000 Consult Discharge Plan - Plan Referrals: Samanta De Souza MD [Primary Care Provider] - <Delonte Lakhani - Last Filed: 05/14/16 17:33> Date of Encounter: 05/14/16 Objective PUL Vital signs: Last Vital Signs Temp 98.3 F 05/14/16 15:05 Pulse 70 05/14/16 16:58 Resp 18 05/14/16 16:58 BP 122/76 05/14/16 16:58 Pulse Ox 98 05/14/16 16:58 Results - Laboratory Findings CBC and BMP: 05/14/16 06:12 05/14/16 06:19 ABG ABG pH 7.35 pH Units (7.32-7.45) 05/13/16 09:44 ABG pCO2 46 mmHg (35-45) H 05/13/16 09:44 ABG pO2 63 mmHg (85-104) L 05/13/16 09:44 ABG O2 Saturation 91 % (95-98) L 05/13/16 09:44 PT/INR, D-dimer PT 20.0 Seconds (9.4-12.1) H 05/14/16 06:19 Abnormal lab findings: Abnormal lab results Plt Count 95 K/mcL (140-400) L D 05/14/16 06:12 Band Neutrophils % 19.0 % (0-4) H 05/14/16 06:12 Metamyelocytes % 2.0 % (0) H 05/14/16 06:12 Reactive Lymphocytes Present (Not Present) A 05/14/16 06:12 Toxic Granulation Present (Not Present) A 05/13/16 03:46 Platelet Estimate Decreased (Normal) L 05/14/16 06:12 Immature Plt Fraction 6.7 % (1.1-6.1) H 05/14/16 06:12 PT 20.0 Seconds (9.4-12.1) H 05/14/16 06:19 ABG pCO2 46 mmHg (35-45) H 05/13/16 09:44 ABG pO2 63 mmHg (85-104) L 05/13/16 09:44 ABG Total CO2 26.8 mEq/L (20-26) H 05/13/16 09:44 ABG O2 Saturation 91 % (95-98) L 05/13/16 09:44 Potassium 3.2 mEq/L (3.5-4.5) L 05/14/16 06:19 BUN 64 mg/dL (8-26) H 05/14/16 06:19 Creatinine 1.94 mg/dL (0.72-1.25) H 05/14/16 06:19 Est GFR ( Amer) 41 (> 60) L 05/14/16 06:19 Est GFR (Non-Af Amer) 33 (> 60) L 05/14/16 06:19 BUN/Creatinine Ratio 33 (6-26) H 05/14/16 06:19 Glucose 180 mg/dL (70-99) H 05/14/16 06:19 POC Glucose 280 (58-89) H 05/14/16 15:06 Calculated Osmolality 321 (280-300) H 05/14/16 06:19 Total Bilirubin 2.0 mg/dL (0.2-1.2) H 05/12/16 04:21 Direct Bilirubin 0.7 mg/dL (0.0-0.5) H 05/12/16 04:21 Indirect Bilirubin 1.3 mg/dL (0.0-1.2) H 05/12/16 04:21 AST 42 Units/L (5-34) H 05/12/16 04:21 C-Reactive Protein 33 mg/L (Less than 5) H 05/11/16 18:47 B-Natriuretic Peptide 855 pg/mL (0-100) H 05/11/16 11:56 Albumin 3.2 g/dL (3.5-5.0) L 05/12/16 04:21 Albumin/Globulin Ratio 1.0 (1.1-2.2) L 05/12/16 04:21 Lipase 104 Units/L (8-78) H 05/12/16 04:21 - Microbiology Findings Microbiology Findings: Microbiology, Last 48 Hours 05/12/16 11:16 Sputum Culture - Final Sputum Klebsiella pneumoniae - Clinical Findings Intake & Output: Intake & Output 05/14/16 05/14/1617 07:59 15:59 23:59 Intake Total 100 / 100 200 / 200 Output Total 1100 / 1100 650 / 650 Balance -1000 / -1000 -450 / -450 - Attending Attestation I examined this patient and my medical decision-making was reviewed with the SNUFF GRINDER AND SCREENER/PA/Advanced Practice Nurse/Resident Physician. I agree with the documented findings, disposition and treatment plan as described except to the extent set forth below. Patient seen and examined. Labs, radiology, chart personally reviewed. Agree with resident's history and physical, assessment, plan with following comments: BAND SAW OPERATOR: Patient follows commands, Pulmonary: Acceptable oxygenation and ventilation Cardiovascular: stable GI: Nutrition per dietary and GI prophylaxis per routine. Patient did good with a swallowing eval and site and speech to see patient Heme: DVT prophylaxis per routine ID: Continue antibiotics and plan to de-escalation Renal; urine out put and renal funtion reviewed Endorcine: blood glucose is monitored Lines: all lines checked and no evidence of infections Skin: skin care to prevent pressure ulcers per nursing routine care Is in this stable to be transferred to the floor.
[2016-05-14] MEDS ORDERED: predniSONE 20 MG TABLET PO SCH (09:00)
[2016-05-14] MEDS: Cefepime HCl 1,000 MG in D5% in Water (Mini-Bag+) 100 ML IVPB SCH (10:31)
[2016-05-14] MEDS ORDERED: Potassium Chloride Elixir 20 MEQ/15 ML UDC PO ONE (10:50)
[2016-05-14] MEDS ORDERED: Bisacodyl 10 MG RECTAL SUPPOSITORY RC PRN ×2 (10:51→18:40)
[2016-05-14] MEDS ORDERED: Insulin DETEMIR 100 UNIT/ML X5UNITS SQ SCH (11:30)
[2016-05-14] MEDS ORDERED: Artificial Tears SOLN 15 ML BOTTLE BOTH EYES SCH (17:00)
[2016-05-14] MEDS ORDERED: *HR* Warfarin 2.5 MG TABLET PO SCH (18:00)
[2016-05-14] MEDS ORDERED: *HR* Dextrose 50 % in Water (Syg) 50 ML SYRINGE IVP PRN (18:40)
[2016-05-14] MEDS ORDERED: D5% in Water 1,000 ML IV PRN (18:40)
[2016-05-14] MEDS ORDERED: Naloxone 0.4 MG/ML INJ IVP PRN (18:40)
[2016-05-14] MEDS ORDERED: Dextrose Gel 15 GM PO PRN ×2 (18:40)
[2016-05-14] MEDS ORDERED: Warfarin perPT PO PRN (18:40)
[2016-05-14] MEDS: Artificial Tears SOLN 15 ML BOTTLE BOTH EYES SCH (22:40)
[2016-05-14] MEDS: Sennosides 8.6 MG TABLET PO SCH (22:41)
[2016-05-14] MEDS: Patient Taking Own Medication 1 EACH PO SCH (22:42)
[2016-05-14] MEDS: Insulin DETEMIR 100 UNIT/ML X5UNITS SQ SCH (22:42)
[2016-05-15] MEDS: Albuterol 2.5 MG/3 ML NEBULIZER IH SCH ×4 (04:45→22:01)
[2016-05-15] MEDS: *HR* Heparin 5,000 UNIT/ML VIAL SQ SCH ×3 (06:36→23:25)
[2016-05-15 06:59] LABS: Basophils % 0.1 %; Hematocrit 41.6 % (37.5-50.1); Hemoglobin 13.8 g/dL (12.9-16.9); Immature Granulocytes % 0.5 % (0-4); Lymphocytes # 0.6 K/mcL (0.6-4.6); Lymphocytes % 4.2 %; Mean Corpuscular HGB Conc 33.2 g/dL (31.6-35.5); Mean Corpuscular Hemoglobin 29.7 pg (28.0-33.3); Mean Corpuscular Volume 89.5 fL (83.0-100.0); Monocytes # 1.2 K/mcL (0.0-1.3); Monocytes % 7.8 %; Neutrophils # 13.2 K/mcL (1.6-8.9); Platelet Count 119 K/mcL (140-400); Red Blood Count 4.65 M/mcL (4.19-5.50); Red Cell Distribution Width 13.9 % (11.5-14.5); Segmented Neutrophils % 87.4 %
[2016-05-15 07:24] LABS: INR 1.9; Prothrombin Time 20.8 Seconds (9.4-12.1)
[2016-05-15 07:28] LABS: Calcium 9.4 mg/dL (8.6-10.8); Potassium 3.4 mEq/L (3.5-4.5)
[2016-05-15] MEDS: predniSONE 20 MG TABLET PO SCH (07:50)
[2016-05-15] MEDS: Sennosides 8.6 MG TABLET PO SCH ×2 (07:50→21:43)
[2016-05-15] MEDS: Aspirin Enteric Coated 81 MG Tablet PO SCH (07:50)
[2016-05-15] MEDS: Artificial Tears SOLN 15 ML BOTTLE BOTH EYES SCH ×4 (07:51→21:42)
[2016-05-15] MEDS: Pantoprazole 40 MG VIAL IVP SCH (07:51)
[2016-05-15] MEDS: Insulin LISPRO 300 UNITS/3 ML VIAL SQ SCH ×4 (07:51→21:42)
[2016-05-15] MEDS: Patient Taking Own Medication 1 EACH PO SCH ×2 (07:52→21:44)
[2016-05-15] MEDS: Insulin DETEMIR 100 UNIT/ML X5UNITS SQ SCH ×2 (07:55→21:43)
[2016-05-15] MEDS: Cefepime HCl 1,000 MG in D5% in Water (Mini-Bag+) 100 ML IVPB SCH (12:03)
--- NOTE | 2016-05-15 14:12 | Internal Med Progress Note ---
Date of Encounter: 05/15/16 Time of Encounter: 14:10 - Assessment and plan (1) Acute encephalopathy Current Visit: Yes Status: Acute Assessment and plan: delirium and hallucinations, likely related to elderly age/sundowning/prolonged hospitalization/ICU course including intubation/polypharmacy. Will restart benzodiazepines at ho e dose as patient has been on it for more than 10years; supportive care and fall precautions. PT/OT evaluation and psychologist social consult as is extremely fearful of caring for the patient alone given his current clinical condition; check TSH/Vit B12/FA levels; (2) Respiratory failure with hypoxia Current Visit: Yes Status: Acute Assessment and plan: related to Pneumonia and component of aspiration. s/p ET intubation and extubation. Currently at baseline O2 requirements; saturating well on NC 2L/min O2; continue IV antibiotics, oral Lasix and bronchodilators as needed; Qualifiers: Chronicity: acute on chronic Qualified Code(s): J96.21 - Acute and chronic respiratory failure with hypoxia (3) Elevated INR Current Visit: Yes Status: Resolved (4) Pneumonia Current Visit: Yes Status: Acute Assessment and plan: Improving clinically. Continue IV Cefepime for now. Blood cultures remained negative. Sputum culture grows Klebsiella pneumoniae. Viral serology negative. Urine Legionella and Strep pneumoniae Ag negative. Qualifiers: Pneumonia type: due to Klebsiella pneumoniae Laterality: right Lung location: lower lobe of lung Qualified Code(s): J15.0 - Pneumonia due to Klebsiella pneumoniae (5) A-fib Current Visit: Yes Status: Chronic Assessment and plan: Rate-controlled; continue beta-tyrone and mcfp anticoagulation with Coumadin. INR noted to be 1.9; Qualifiers: Atrial fibrillation type: paroxysmal Qualified Code(s): I48.0 - Paroxysmal atrial fibrillation (6) CAD (coronary artery disease) Current Visit: Yes Status: Chronic Qualifiers: Coronary Disease-Associated Artery/Lesion type: [place] artery [place] vs. transplanted heart: [place] heart Associated angina: without angina Qualified Code(s): I25.10 - Atherosclerotic heart disease of [place] coronary artery without angina pectoris (7) CKD (chronic kidney disease), stage III Current Visit: Yes Status: Chronic Assessment and plan: Acute on chronic renal failure- improved. GFR at baseline; continue to monitor; (8) Congestive heart failure Current Visit: Yes Status: Chronic Qualifiers: Congestive heart failure type: systolic Congestive heart failure chronicity : chronic Qualified Code(s): I50.22 - Chronic systolic (congestive) heart failure (9) Diabetes Current Visit: Yes Status: Chronic Qualifiers: Diabetes mellitus type: type 2 Diabetes mellitus complication status: with kidney complications Diabetes mellitus complication detail: with chronic kidney disease Diabetes mellitus mcfp insulin use: with terminal computer operator use Chronic kidney disease stage: stage 3 (moderate) Qualified Code(s): E11.22 - Type 2 diabetes mellitus with diabetic chronic kidney disease; N18.3 - Chronic kidney disease, stage 3 (moderate); Z79.4 - terminal makeup operator (current) use of insulin (10) Gastric dysmotility Current Visit: Yes Status: Acute (11) Hypertension Current Visit: Yes Status: Chronic Qualifiers: Hypertension type: essential hypertension Qualified Code(s): I10 - Essential (primary) hypertension - Subjective Interval history: Awake, sitting up in chair. Oriented to person and place. reports patient is having visual hallucinations and confusion with lucid intervals. No cough, shortness of breath, chest pain - Constitutional Vitals: Temp Pulse Resp BP Pulse Ox 98.9 F 78 20 144/91 96 05/15/16 11:23 05/15/16 11:23 05/15/16 11:23 05/15/16 11:23 05/15/16 11:23 General appearance: Present: A&O X 2, answers questions appropriately - Head Head exam: Present: atraumatic, normocephalic - Neck Neck exam general surgery: Present: supple, trachea midline. Absent: lymphadenopathy - Respiratory Respiratory exam: Present: rales (Faint bilateral crackles). Absent: accessory muscle use, rhonchi, wheezes - Cardiovascular Cardiovascular exam: Present: RRR, +S1, +S2. Absent: diastolic murmur, gallop, rubs, systolic murmur - GI/Abdominal GI/Abdominal exam: Present: normal bowel sounds, soft, no peritoneal signs. Absent: distended, tenderness - Extremities Exam Extremities exam: Present: full ROM, warm, radial pulses palpable and symetrical. Absent: calf tenderness, cyanotic, pedal edema - Neurological Exam Neurological exam: Present: CN II-XII intact, no focal deficits. Absent: pronater drift, facial droop, speech deficit - Skin Skin exam: Present: dry, intact Internal Medicine: Result - Labs CBC & Chem 7: 05/15/16 05:58 02/14/17 05:58 Labs: Short CBC 05/15/16 Range/Units 05:58 WBC 15.1 H D (4.3-11.1) K/mcL Hgb 13.8 (12.9-16.9) g/dL Hct 41.6 (37.5-50.1) % Plt Count 119 L (140-400) K/mcL Neutrophils # 13.2 H (1.6-8.9) K/mcL BMP 05/15/16 05:58 Sodium 146 H Potassium 3.4 L Chloride 111 H Carbon Dioxide 23 BUN 60 H Creatinine 1.72 H Glucose 200 H Calcium 9.4 - ABG Interpretation ABG results: ABG ABG pH 7.35 pH Units (7.32-7.45) 05/13/16 09:44 ABG pCO2 46 mmHg (35-45) H 05/13/16 09:44 ABG pO2 63 mmHg (85-104) L 05/13/16 09:44 ABG O2 Saturation 91 % (95-98) L 05/13/16 09:44 PT/INR, D-dimer PT 20.8 Seconds (9.4-12.1) H 05/15/16 05:58 - VTE Documentation of Mechanical Device: Intermittent pneumatic compression device Consult Discharge Plan - Plan Referrals: Samanta De Souza MD [Primary Care Provider] -
[2016-05-15] MEDS: ALPRAZolam 0.5 MG TABLET PO PRN (14:40)
[2016-05-15 15:42] LABS: Thyroid Stimulating Hormone 0.186 mcIU/mL (0.350-4.840)
[2016-05-15] MEDS ORDERED: *HR* Warfarin 5 MG TABLET PO SCH (18:00)
[2016-05-15 21:53] LABS: Folate 15.9 ng/mL (7.0-31.4)
[2016-05-15 21:58] LABS: Vitamin B12 > 2000 pg/mL (213-816)
[2016-05-16] MEDS: Albuterol 2.5 MG/3 ML NEBULIZER IH SCH ×4 (04:49→21:18)
[2016-05-16] MEDS: *HR* Heparin 5,000 UNIT/ML VIAL SQ SCH ×3 (06:05→22:32)
[2016-05-16 06:26] LABS: Basophils % 0.1 %; Eosinophils % 0.1 %; Hematocrit 38.3 % (37.5-50.1); Hemoglobin 13.1 g/dL (12.9-16.9); Immature Granulocytes % 0.6 % (0-4); Lymphocytes # 0.7 K/mcL (0.6-4.6); Lymphocytes % 7.4 %; Mean Corpuscular HGB Conc 34.2 g/dL (31.6-35.5); Mean Corpuscular Hemoglobin 30.6 pg (28.0-33.3); Mean Corpuscular Volume 89.5 fL (83.0-100.0); Mean Platelet Volume 11.2 fL (9.4-12.4); Monocytes # 0.9 K/mcL (0.0-1.3); Monocytes % 9.4 %; Neutrophils # 8.2 K/mcL (1.6-8.9); Red Blood Count 4.28 M/mcL (4.19-5.50); Red Cell Distribution Width 13.8 % (11.5-14.5); Segmented Neutrophils % 82.4 %
[2016-05-16 06:28] LABS: INR 2.1; Platelet Count 88 K/mcL (140-400); Prothrombin Time 22.7 Seconds (9.4-12.1)
[2016-05-16 06:40] LABS: Calcium 9.1 mg/dL (8.6-10.8); Potassium 3.5 mEq/L (3.5-4.5)
[2016-05-16] MEDS: Aspirin Enteric Coated 81 MG Tablet PO SCH (07:38)
[2016-05-16] MEDS: predniSONE 20 MG TABLET PO SCH (07:39)
[2016-05-16] MEDS: Patient Taking Own Medication 1 EACH PO SCH ×2 (07:40→21:36)
[2016-05-16] MEDS: Sennosides 8.6 MG TABLET PO SCH ×2 (07:40→21:36)
[2016-05-16] MEDS: ALPRAZolam 0.5 MG TABLET PO PRN (07:41)
[2016-05-16] MEDS: Insulin LISPRO 300 UNITS/3 ML VIAL SQ SCH ×4 (07:41→21:36)
[2016-05-16] MEDS: Pantoprazole 40 MG VIAL IVP SCH (07:41)
[2016-05-16] MEDS: Artificial Tears SOLN 15 ML BOTTLE BOTH EYES SCH ×4 (07:43→21:37)
[2016-05-16] MEDS: Insulin DETEMIR 100 UNIT/ML X5UNITS SQ SCH ×2 (09:03→21:36)
[2016-05-16] MEDS: Cefepime HCl 1,000 MG in D5% in Water (Mini-Bag+) 100 ML IVPB SCH (09:05)
--- NOTE | 2016-05-16 12:00 | Discharge Summary ---
Date of Encounter: 05/16/16 Time of Encounter: 11:20 - Discharge Diagnosis (1) Acute encephalopathy Priority: Primary Status: Resolved (2) Respiratory failure with hypoxia Priority: Primary Status: Acute Qualifiers: Chronicity: acute Qualified Code(s): J96.01 - Acute respiratory failure with hypoxia (3) Elevated INR Priority: Primary Status: Resolved (4) Pneumonia Priority: Primary Status: Acute Qualifiers: Pneumonia type: due to Klebsiella pneumoniae Laterality: right Lung location: lower lobe of lung Qualified Code(s): J15.0 - Pneumonia due to Klebsiella pneumoniae (5) A-fib Priority: Secondary Status: Chronic Qualifiers: Atrial fibrillation type: paroxysmal Qualified Code(s): I48.0 - Paroxysmal atrial fibrillation (6) CAD (coronary artery disease) Priority: Secondary Status: Chronic Qualifiers: Coronary Disease-Associated Artery/Lesion type: [place] artery [place] vs. transplanted heart: [place] heart Associated angina: without angina Qualified Code(s): I25.10 - Atherosclerotic heart disease of [place] coronary artery without angina pectoris (7) CKD (chronic kidney disease), stage III Priority: Secondary Status: Chronic (8) Congestive heart failure Priority: Secondary Status: Chronic Qualifiers: Congestive heart failure type: systolic Congestive heart failure chronicity : chronic Qualified Code(s): I50.22 - Chronic systolic (congestive) heart failure (9) Diabetes Priority: Secondary Status: Chronic Qualifiers: Diabetes mellitus type: type 2 Diabetes mellitus complication status: with kidney complications Diabetes mellitus complication detail: with chronic kidney disease Diabetes mellitus intermodal customer service insulin use: with skilled nursing use Chronic kidney disease stage: stage 3 (moderate) Qualified Code(s): E11.22 - Type 2 diabetes mellitus with diabetic chronic kidney disease; N18.3 - Chronic kidney disease, stage 3 (moderate); Z79.4 - intermediate (current) use of insulin (10) Gastric dysmotility Priority: Primary Status: Resolved (11) Hypertension Priority: Secondary Status: Chronic Qualifiers: Hypertension type: essential hypertension Qualified Code(s): I10 - Essential (primary) hypertension - Discharge Medications Prescriptions: Albuterol Neb [Proventil Neb] 2.5 mg IH [id number] PRN 30 Days PRN Reason: Shortness Of Breath/Wheezing Amoxicillin/Clavulanate [Augmentin] 500 mg PO BIDWM 2 Days PredniSONE 30 mg PO DAILY 6 Days Home Medications: Acetaminophen [Tylenol] 500 - 1,000 mg PO Q6H PRN 05/11/16 [History] Alprazolam [Xanax 0.5 MG Tablet] 0.5 mg PO TID PRN 05/11/16 [History] Amlodipine [Norvasc] 5 mg PO DAILY 05/11/16 [History] Aspirin [Lo-Dose Aspirin EC] 81 mg PO DAILY 05/11/16 [History] Atorvastatin Calcium [Lipitor] 60 mg PO QPM 05/11/16 [History] Calcium Carbonate/Vitamin D3 [Calcium 600 + Vit D Softgel] 1 cap PO BID [History] Carvedilol [Coreg] 25 mg PO BID 05/11/16 [History] Folic Acid/Multivit-Min/Lutein [Adult Multivitamin Gummies] 2 tab PO DAILY 05/11 [History] Furosemide [Lasix] 40 mg PO DAILY 05/11/16 [History] Insulin Glargine,Hum.rec.anlog [Lantus Solostar] 12 unit SQ BID 05/11/16 [ History] Insulin LISPRO [Humalog] 3 - 8 unit SQ TIDWM 05/11/16 [History] Lisinopril [Zestril] 20 mg PO BID 05/11/16 [History] Pantoprazole Sodium [Protonix] 40 mg PO DAILY 05/11/16 [History] Warfarin [Coumadin] 2.5 mg PO MOWEFRSA 05/11/16 [History] Warfarin [Coumadin] 5 mg PO SUTUTH 05/11/16 [History] Albuterol Neb [Proventil Neb] 2.5 mg IH [id number] PRN 30 Days 05/16/16 [Rx] Amoxicillin/Clavulanate [Augmentin] 500 mg PO BIDWM 2 Days 05/16/16 [Rx] PredniSONE 30 mg PO DAILY 6 Days 05/16/16 [Rx] Allergies/Adverse Reactions: Allergies iodine Allergy (Verified 06/11/15 10:14) See Comments levofloxacin [From Levaquin] Allergy (Verified 06/11/15 10:14) See Comments vancomycin Allergy (Verified 06/11/15 10:14) See Comments Date of admission: 05/12/16 00:04 Primary care physician: Samanta Cat Consults: 05/15/16 14:08 Consult to Occupational Therapy [CONS] Routine Comment: Evaluate, develop and implement POC Consult to Physical Therapy [CONS] Routine Comment: Evaluate, develop and implement POC 05/16/16 07:00 Consult to Linux Solar[employer] Administrator [CONS] Routine Reason for SW Consult: wants traditionreji Discharging clinician: Yovana Contreras Anticipated date of discharge: 05/16/16 - Patient Status Disposition: Transfer SNF Condition: Fair Functional capacity at discharge: uses cane/walker Overall status at discharge: patient is progressing back to baseline - Discharge Instructions Follow Up With: Marianne Olivera CNP [Partnered Physician] - 05/31/16 9:15 am Samanta De Souza MD [Primary Care Provider] - 06/04/16 9:45 am Han Jenkins MD [Partnered Physician] - 07/17/16 3:00 pm David Costello MD [Partnered Physician] - 09/26/16 1:00 pm Additional Instructions: Follow-up appointments: If there is not an appointment listed below, please call your physician and schedule a follow-up appointment. If you have congestive heart failure and your symptoms return, make an appointment with your physician. Symptoms: If your condition changes or you experience any of the following symptoms, notify your physician immediately: Unusual or worsening pain, fever, persistent nausea and vomiting, bleeding, increase in swelling (especially in your legs), sudden weight gain, extreme dizziness, chest pain, increased drainage or redness from a wound or incision. Go to the emergency department if you experience a problem with breathing. Weights: If you have a history of swelling or shortness of breath, weigh yourself daily and notify your physician if you have a weight gain of two or more pounds in one day or 5 or more pounds in a week. If you experience any of the warning signs for stroke: Sudden numbness or weakness of the face, arm or leg; especially on one side of the body, sudden confusion, trouble speaking or understanding, sudden trouble seeing in one or both eyes, sudden trouble walking, dizziness, loss of balance or coordination, sudden sever headache with no cause; Call 911 or go to the emergency room. Stroke is a medical emergency. Some risk factors for stroke: Age, cigarette smoking, diabetes, excessive alcohol consumption, family history , high blood pressure, overweight, physical inactivity, prior stroke, heart attack, diagnosis of carotid artery stenosis or other artery disease. If you smoke, STOP: Smoking or tobacco use significantly increases your risk of heart and lung disease. Your chance of disease greatly increases if you continue to smoke. For more information, call the [place] tobacco quit line for smoking cessation -NOW ( ) - Diet and Activity Activity: as per physical therapy, wear oxygen at all times Diet: diabetic diet, low fat, low cholesterol, low salt diet Hospital course: Mr. Wei is a 81 year old male with above medical problems who was admitted with acute shortness of breath. He was noted to have right lower lobe pneumonia with a competent of aspiration and was started on broad-spectrum IV antibiotics. He went into respiratory distress and had to be intubated and transferred to ICU on the day of admission. He was also started on IV Lasix for possible acute volume overload due to underlying ischemic cardiomyopathy. He was continued on bronchodilators and steroids. He was gradually weaned off the ventilator and continued to do well and was transferred to medical floor. His blood cultures remain negative. Sputum culture grew Klebsiella pneumoniae. He was continued on IV cefepime. Patient did well from respiratory standpoint while on the floor, however became delirious with confusion and hallucinations. His symptoms have currently improved and his mental status is back to baseline at this time. He is noted to require 2 L/m supplemental oxygen via nasal cannula. He is tolerating oral diet and is hemodynamically stable. He is medically stable for discharge at this time. Physical therapy evaluation was done and recommended home health services. However, patient is noted to be very weak and he lives with his spouse who is fearful of caring for him at home with no help. He is therefore being sent to extended care facility for short- term rehabilitation at this time. - Time Spent with Patient Total time spent providing and/or coordinating discharge services: Greater than 30 minutes (50 min) - Constitutional Vitals: Temp Pulse Resp BP Pulse Ox 97.9 F 67 18 167/92 96 05/16/16 11:31 05/16/16 11:31 05/16/16 11:31 05/16/16 11:31 05/16/16 11:31 General appearance: Present: A&O X 3, answers questions appropriately - Respiratory Respiratory exam: Present: CTAB (coarse breath sounds B/L). Absent: accessory muscle use, rales, rhonchi, wheezes - Cardiovascular Cardiovascular exam: Present: RRR, +S1, +S2. Absent: diastolic murmur, gallop, rubs, systolic murmur - VTE Documentation of Mechanical Device: Intermittent pneumatic compression device
--- NOTE | 2016-05-16 12:02 | Physician Discharge Referral ---
ExtendedCare Referral Info Provider in Charge: Yovana Contreras Provider in Charge after Transfer: PCP Institutional Level of Care: Intermediate - MR - Diagnosis (1) Acute encephalopathy Priority: Primary Status: Resolved (2) Respiratory failure with hypoxia Priority: Primary Status: Acute (3) Elevated INR Priority: Primary Status: Resolved (4) Pneumonia Priority: Primary Status: Acute (5) A-fib Priority: Secondary Status: Chronic (6) CAD (coronary artery disease) Priority: Secondary Status: Chronic (7) CKD (chronic kidney disease), stage III Priority: Secondary Status: Chronic (8) Congestive heart failure Priority: Secondary Status: Chronic (9) Diabetes Priority: Secondary Status: Chronic (10) Gastric dysmotility Priority: Primary Status: Resolved (11) Hypertension Priority: Secondary Status: Chronic Expected Duration of Placement: 2 weeks Prognosis: Fair Aware of Diagnosis: Patient, Family Aware of Prognosis: Patient, Family - Transfer Medications Prescriptions: Albuterol Neb [Proventil Neb] 2.5 mg IH [id number] PRN 30 Days PRN Reason: Shortness Of Breath/Wheezing Amoxicillin/Clavulanate [Augmentin] 500 mg PO BIDWM 2 Days PredniSONE 30 mg PO DAILY 6 Days Home Medications: Acetaminophen [Tylenol] 500 - 1,000 mg PO Q6H PRN 05/11/16 [History] Alprazolam [Xanax 0.5 MG Tablet] 0.5 mg PO TID PRN 05/11/16 [History] Amlodipine [Norvasc] 5 mg PO DAILY 05/11/16 [History] Aspirin [Lo-Dose Aspirin EC] 81 mg PO DAILY 05/11/16 [History] Atorvastatin Calcium [Lipitor] 60 mg PO QPM 05/11/16 [History] Calcium Carbonate/Vitamin D3 [Calcium 600 + Vit D Softgel] 1 cap PO BID [History] Carvedilol [Coreg] 25 mg PO BID 05/11/16 [History] Folic Acid/Multivit-Min/Lutein [Adult Multivitamin Gummies] 2 tab PO DAILY 05/11 [History] Furosemide [Lasix] 40 mg PO DAILY 05/11/16 [History] Insulin Glargine,Hum.rec.anlog [Lantus Solostar] 12 unit SQ BID 05/11/16 [ History] Insulin LISPRO [Humalog] 3 - 8 unit SQ TIDWM 05/11/16 [History] Lisinopril [Zestril] 20 mg PO BID 05/11/16 [History] Pantoprazole Sodium [Protonix] 40 mg PO DAILY 05/11/16 [History] Warfarin [Coumadin] 2.5 mg PO MOWEFRSA 05/11/16 [History] Warfarin [Coumadin] 5 mg PO SUTUTH 05/11/16 [History] Albuterol Neb [Proventil Neb] 2.5 mg IH [id number] PRN 30 Days 05/16/16 [Rx] Amoxicillin/Clavulanate [Augmentin] 500 mg PO BIDWM 2 Days 05/16/16 [Rx] PredniSONE 30 mg PO DAILY 6 Days 05/16/16 [Rx] Allergies/Adverse Reactions: Allergies iodine Allergy (Verified 06/11/15 10:14) See Comments levofloxacin [From Levaquin] Allergy (Verified 06/11/15 10:14) See Comments vancomycin Allergy (Verified 06/11/15 10:14) See Comments - Respiratory Orders Oxygen / L per min (2-3L/min via [place]) Smoking Cessation: Smoking cessation has been advised. For more information, call the [place] Tobacco Quit Line at 5-515-XCAV-NOW. - Advance Directives Code Status: Full Code - Mobility Orders Ambulate - Rehabiliation Orders Rehab Orders: ROM Exercises, Evaluation for Physical Therapy, Evaluation for Occupational Therapy - Diet Orders No Added Salt (GONZALO), No Concentrated Sweets (diabetic), Renal, Cardiac CERTIFICATION: I certify that the transfer of the above named patient to an Extended Care Facility is necessary for the continuing treatment of the diagnosis listed. The above information is true and accurate reflection of patient's current condition. Confidential - Redisclosure prohibited without a patient's written consent.
[2016-05-16] MEDS ORDERED: *HR* Warfarin 2.5 MG TABLET PO SCH (18:00)
[2016-05-17] MEDS: Albuterol 2.5 MG/3 ML NEBULIZER IH SCH ×2 (04:09→10:23)
[2016-05-17] MEDS: *HR* Heparin 5,000 UNIT/ML VIAL SQ SCH (06:35)
[2016-05-17 06:53] LABS: Prothrombin Time 33.4 Seconds (9.4-12.1)
[2016-05-17] MEDS: Aspirin Enteric Coated 81 MG Tablet PO SCH (07:45)
[2016-05-17] MEDS: predniSONE 20 MG TABLET PO SCH (07:45)
[2016-05-17] MEDS: Insulin LISPRO 300 UNITS/3 ML VIAL SQ SCH ×2 (07:46→12:00)
[2016-05-17] MEDS: Sennosides 8.6 MG TABLET PO SCH (07:46)
[2016-05-17] MEDS: Pantoprazole 40 MG VIAL IVP SCH (07:47)
[2016-05-17] MEDS: Patient Taking Own Medication 1 EACH PO SCH (07:50)
[2016-05-17] MEDS: Artificial Tears SOLN 15 ML BOTTLE BOTH EYES SCH ×2 (07:51→11:57)
[2016-05-17] MEDS: Insulin DETEMIR 100 UNIT/ML X5UNITS SQ SCH (07:51)
[2016-05-17] MEDS: Cefepime HCl 1,000 MG in D5% in Water (Mini-Bag+) 100 ML IVPB SCH (10:40)
[2016-05-17 11:06] VITALS: BP 127/78
[2016-05-17 11:28] LABS: Mycoplasma pneumoniae IgG 0.2 U/L (<=0.09)
--- NOTE | 2016-05-17 12:10 | Internal Med Progress Note ---
Date of Encounter: 05/17/16 Time of Encounter: 12:09 - Assessment and plan (1) Respiratory failure with hypoxia Current Visit: Yes Status: Acute Assessment and plan: related to Pneumonia and component of aspiration. s/p ET intubation and extubation. Improving oxygen requirements. continue IV antibiotics, oral Lasix and bronchodilators as needed; Patient is medically stable for transfer to rehabilitation facility. Qualifiers: Chronicity: acute Qualified Code(s): J96.01 - Acute respiratory failure with hypoxia (2) Elevated INR Current Visit: Yes Status: Resolved (3) Pneumonia Current Visit: Yes Status: Acute Assessment and plan: Improving clinically. Continue IV Cefepime for now. Blood cultures remained negative. Sputum culture grows Klebsiella pneumoniae. Viral serology negative. Urine Legionella and Strep pneumoniae Ag negative. Qualifiers: Pneumonia type: due to Klebsiella pneumoniae Laterality: right Lung location: lower lobe of lung Qualified Code(s): J15.0 - Pneumonia due to Klebsiella pneumoniae (4) A-fib Current Visit: Yes Status: Chronic Qualifiers: Atrial fibrillation type: paroxysmal Qualified Code(s): I48.0 - Paroxysmal atrial fibrillation (5) CAD (coronary artery disease) Current Visit: Yes Status: Chronic Qualifiers: Coronary Disease-Associated Artery/Lesion type: [place] artery [place] vs. transplanted heart: [place] heart Associated angina: without angina Qualified Code(s): I25.10 - Atherosclerotic heart disease of [place] coronary artery without angina pectoris (6) CKD (chronic kidney disease), stage III Current Visit: Yes Status: Chronic (7) Congestive heart failure Current Visit: Yes Status: Chronic Qualifiers: Congestive heart failure type: systolic Congestive heart failure chronicity : chronic Qualified Code(s): I50.22 - Chronic systolic (congestive) heart failure (8) Diabetes Current Visit: Yes Status: Chronic Qualifiers: Diabetes mellitus type: type 2 Diabetes mellitus complication status: with kidney complications Diabetes mellitus complication detail: with chronic kidney disease Diabetes mellitus roasterman insulin use: with group home use Chronic kidney disease stage: stage 3 (moderate) Qualified Code(s): E11.22 - Type 2 diabetes mellitus with diabetic chronic kidney disease; N18.3 - Chronic kidney disease, stage 3 (moderate); Z79.4 - terminal computer operator (current) use of insulin (9) Gastric dysmotility Current Visit: Yes Status: Resolved (10) Hypertension Current Visit: Yes Status: Chronic Qualifiers: Hypertension type: essential hypertension Qualified Code(s): I10 - Essential (primary) hypertension - Subjective Interval history: Awake, sitting up in chair. Reports feeling tired today due to not having a good night's sleep; awaiting placement in rehab; - Constitutional Vitals: Temp Pulse Resp BP Pulse Ox 98.2 F 71 18 127/78 90 L 05/17/16 10:58 05/17/16 10:58 05/17/16 10:58 05/17/16 10:58 05/17/16 10:58 General appearance: Present: A&O X 3, answers questions appropriately - Respiratory Respiratory exam: Present: CTAB. Absent: accessory muscle use, rales, rhonchi, wheezes - Cardiovascular Cardiovascular exam: Present: RRR, +S1, +S2. Absent: diastolic murmur, gallop, rubs, systolic murmur Internal Medicine: Result - Labs CBC & Chem 7: 05/16/16 06:08 05/16/16 06:08 - ABG Interpretation ABG results: ABG ABG pH 7.35 pH Units (7.32-7.45) 05/13/16 09:44 ABG pCO2 46 mmHg (35-45) H 05/13/16 09:44 ABG pO2 63 mmHg (85-104) L 05/13/16 09:44 ABG O2 Saturation 91 % (95-98) L 05/13/16 09:44 PT/INR, D-dimer PT 33.4 Seconds (9.4-12.1) H 05/17/16 06:06 - VTE Documentation of Mechanical Device: Intermittent pneumatic compression device Consult Discharge Plan - Plan Additional Instructions: Follow-up appointments: If there is not an appointment listed below, please call your physician and schedule a follow-up appointment. If you have congestive heart failure and your symptoms return, make an appointment with your physician. Symptoms: If your condition changes or you experience any of the following symptoms, notify your physician immediately: Unusual or worsening pain, fever, persistent nausea and vomiting, bleeding, increase in swelling (especially in your legs), sudden weight gain, extreme dizziness, chest pain, increased drainage or redness from a wound or incision. Go to the emergency department if you experience a problem with breathing. Weights: If you have a history of swelling or shortness of breath, weigh yourself daily and notify your physician if you have a weight gain of two or more pounds in one day or 5 or more pounds in a week. If you experience any of the warning signs for stroke: Sudden numbness or weakness of the face, arm or leg; especially on one side of the body, sudden confusion, trouble speaking or understanding, sudden trouble seeing in one or both eyes, sudden trouble walking, dizziness, loss of balance or coordination, sudden sever headache with no cause; Call 911 or go to the emergency room. Stroke is a medical emergency. Some risk factors for stroke: Age, cigarette smoking, diabetes, excessive alcohol consumption, family history , high blood pressure, overweight, physical inactivity, prior stroke, heart attack, diagnosis of carotid artery stenosis or other artery disease. If you smoke, STOP: Smoking or tobacco use significantly increases your risk of heart and lung disease. Your chance of disease greatly increases if you continue to smoke. For more information, call the [place] tobacco quit line for smoking cessation 1-351-NOW ( ) Referrals: Marianne Olivera CNP [Partnered Physician] - 05/31/16 9:15 am Samanta De Souza MD [Primary Care Provider] - 06/04/16 9:45 am Han Jenkins MD [Partnered Physician] - 07/17/16 3:00 pm David Costello MD [Partnered Physician] - 09/26/16 1:00 pm Prescriptions: Albuterol Neb [Proventil Neb] 2.5 mg IH [id number] PRN 30 Days PRN Reason: Shortness Of Breath/Wheezing Amoxicillin/Clavulanate [Augmentin] 500 mg PO BIDWM 2 Days PredniSONE 30 mg PO DAILY 6 Days
== END 2016-05-17 17:40 | DRG 208 ==
LOC: EMEROO 11:20 → 3BNU 11:20 → ICNU 22:36 → SUATTDRO 05-12 00:04 → 3NENU 05-14 18:36
PROVIDERS: ADMIT Internal Medicine; ATTEND Internal Medicine